=== PATIENT | female | born 1955 | race Caucasian/White ===

== ENCOUNTER → 2019-05-16 | Outpatient (CLI) | payer MEDICAID, OTHER ==
--- NOTE | 2019-05-16 16:15 | KCIC ---
Bilateral digital screening mammograms: Reason for examination: Routine screening. Comparison is made to previous studies dated 05/25/2018 and 03/23/2017. Interpretation was made with the benefit of CAD. Patient was in a wheelchair and difficult to position. The skin and nipples show no abnormalities. No abnormal lymph nodes are seen. The breast parenchyma is predominantly fatty. (Breast density: Category A.) There are no dominant masses, suspicious calcifications or architectural distortions. A few benign calcifications are again seen. Impression: No evidence of malignancy. Recommend routine screening. BI-RADS Category 2: Benign. "Our facility is accredited by the [employer] Mammography Program." This patient's information has been entered into a reminder system for the patient to be notified with the results of her examination and a target date for the next mammogram. Electronically signed by: Steffany Valera MD (05/16/2019 4:12 PM) [id number]
== END | disposition home or self-care (01) ==
LOC: KCIC MAMMO 12:26
PROVIDERS: ATTEND Internal Medicine
DX: Z12.31 Encounter for screening mammogram for malignant neoplasm of breast (principal)
CPT/HCPCS: 77067

== ENCOUNTER → 2019-09-20 | Outpatient (CLI) | payer MEDICARE, MEDICAID ==
[2019-08-07 11:44] VITALS: BP 155/54
[~2019-09-20] MED LIST: ACET325T21 PO; ASPI1CPM PO; BENZ100C PO; CALC-497 PO; CALC500T31 PO; CETI10TA16 PO; CITA10TA8 PO; CLONAZEPAM1 MG PO; CYAN100031 PO; CYCL5TAB PO; DICL100G18 TP; FAMO-63 PO; GUAI600T47 PO; IPRA3AMP29 NEB; LEVE500T56 PO; LEVO100T PO; LEVO500T59 PO; LOPE-101 PO; MELA3TAB4 PO; MULT-245 PO; NYST1POW5 MC; ONDA4TAB7 PO; OSEL75CA PO; OXYC-325 PO; POLY17PO29 PO; POTA20TA4 PO; PRED20TA PO; ROPI2TAB10 PO; SENN-37 PO; SIMV20TA18 PO; TIZA4TAB2 PO; TRAM50TA PO
--- NOTE | 2019-09-20 11:02 | CARD ---
MR#: [id number] Date of Study: 09/20/2019 Ordering Physician: ABHILASH AGUILAR, Referring Physician: Julieth CASTILLO: Sarah Comer APPROVED REPORT EXAM: Two-dimensional and M-mode echocardiogram with Doppler and color Doppler. Other Information Quality : AverageHR: 63bpm INDICATION Chest Pain 2D DIMENSIONS Left Atrium(2D)3.3 (1.6-4.0cm)IVSd1.0 (0.7-1.1cm) LVDd4.8 (3.9-5.9cm)LVOT Diameter2.1 (1.8-2.4cm) PWd1.0 (0.7-1.1cm)LVDs3.5 (2.5-4.0cm) FS (%) 27.4 %SV57.2 ml LVEF(%)53.2 (>50%) Aortic Valve AoV Peak Mendoza.113.7cm/Nina Peak GR.5.2mmHg Mitral Valve MV E Smjdkuzp62.5cm/sMV A Velocity2.2cm/s E/A Ratio41.6MV A [id number] Pulmonary Valve PV Peak Ucqyajrz10.4cm/s Pulmonary Vein S1 Wypcooim70.1cm/sD2 Stujbynm27.2cm/s PVa [id number] LEFT VENTRICLE The left ventricle is normal size. There is normal left ventricular wall thickness. The left ventricu lar systolic function is normal. The Ejection Fraction is 60-65%. There is normal LV segmental wall m otion. The left ventricular diastolic function and filling is normal for age. RIGHT VENTRICLE The right ventricle is normal size. There is normal right ventricular wall thickness. The right ventr icular systolic function is normal. ATRIA The left atrium size is normal. The right atrium size is normal. The interatrial septum is intact wit h no evidence for an atrial septal defect or patent foramen ovale as noted on 2-D or Doppler imaging. AORTIC VALVE The aortic valve is normal in structure and function. Doppler and Color Flow revealed no significant aortic regurgitation. There is no significant aortic valvular stenosis. MITRAL VALVE The mitral valve is normal in structure and function. There is no mitral valve stenosis. Doppler and Color Flow revealed no mitral valve regurgitation noted. TRICUSPID VALVE The tricuspid valve is normal in structure and function. Doppler and Color Flow revealed no tricuspid valve regurgitation noted. There is no tricuspid valve stenosis. PULMONIC VALVE The pulmonary valve is normal in structure and function. Doppler and Color Flow revealed no pulmonic valvular regurgitation. GREAT VESSELS The aortic root is normal in size. The IVC is normal in size and collapses >50% with inspiration. PERICARDIAL EFFUSION There is no evidence of significant pericardial effusion. Critical Notification Critical Value: No <Conclusion> The left ventricular systolic function is normal. The Ejection Fraction is 60-65%. There is normal LV segmental wall motion. There is no evidence of significant pericardial effusion. Signed by : Abhilash Aguilar, Electronically Approved : 09/20/2019 11:01:34
== END ==
LOC: ECHO 09:14
PROVIDERS: ATTEND Internal Medicine Cardiovascular Disease
DX: R07.9 Chest pain, unspecified (principal)
CPT/HCPCS: 93306

== ENCOUNTER 2019-12-27 07:00 | Inpatient (IN) | payer MEDICARE, MEDICAID ==
[~2019-12-27] VITALS: Ht 165.1 cm; Wt 98.1 kg
[~2019-12-27 07:00] MED LIST changes: -DICL100G18 TP; +DICL100G54 TP; +LEVO-101 PO; -LEVO100T PO
--- NOTE | 2019-12-27 07:11 | EKG ---
[facility] [address] [place] [address] Test Date: 2019-12-27 Test Time: 07:05:12 Pat Name: MAURY BALDERRAMA Department: Room: Gender: F Concession Supervisor: : 1955 Requested By: FABRICIO MONTEZ Order Number: [id number] Reading MD: Geovany Lara MD Measurements Intervals [place] Rate: 82 P: 73 ID: [id number] QRS: 7 QRSD: 80 T: 48 QT: 360 QTc: 424 Interpretive Statements SINUS RHYTHM VENTRICULAR PREMATURE COMPLEX(ES) Electronically Signed On 12-27-2019 9:50:16 CDT by Geovany Lara MD
[2019-12-27] MEDS ORDERED: IV NORMAL SALINE 1000ML BAG 1,000 ML IV ONE (07:15)
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
[2019-12-27 07:26] LABS: BASO % 0 % (0-3); EOS # 0.1 x10^3/uL (0.0-0.7); EOS % 1 % (0-3); HEMATOCRIT 28.5 % (36.0-47.0); LYMPH # 2.1 x10^3/uL (1.0-4.8); LYMPH % 19 % (24-48); MEAN CORPUSCULAR HEMOGLOBIN 24 pg (25-35); MEAN CORPUSCULAR HGB CONC 32 g/dL (31-37); MEAN CORPUSCULAR VOLUME 77 fL (79-100); MONO # 0.8 x10^3/uL (0.0-1.1); MONO % 8 % (0-9); NEUT # 7.8 x10^3/uL (1.8-7.7); NEUT % 72 % (31-73); PLATELET COUNT 543 x10^3/uL (140-400); WHITE BLOOD COUNT 10.9 x10^3/uL (4.0-11.0)
[2019-12-27] MEDS ORDERED: ASPIRIN 325 MG TABLET PO ONE (07:30)
[2019-12-27 07:36] LABS: PROTHROMBIN TIME PATIENT 14.3 SEC (11.7-14.0)
[2019-12-27 07:41] LABS: CALCIUM 8.5 mg/dL (8.5-10.1); CREATININE 0.9 mg/dL (0.6-1.0); POTASSIUM 4.2 mmol/L (3.5-5.1)
[2019-12-27] MEDS ORDERED: CONTRAST GIVEN. MC PRN (07:45)
[2019-12-27] MEDS ORDERED: IOHEXOL 350 MG/ML 100 ML VIAL. IV ONE (07:45)
[2019-12-27 07:46] LABS: ALBUMIN 2.5 g/dL (3.4-5.0); ALBUMIN/GLOBULIN RATIO 0.5 (1.0-1.7); MAGNESIUM 2.1 mg/dL (1.8-2.4); TOTAL BILIRUBIN 0.2 mg/dL (0.2-1.0); TOTAL PROTEIN 7.3 g/dL (6.4-8.2)
[2019-12-27 07:47] LABS: BILIRUBIN,URINE NEGATIVE (NEG); CLARITY,URINE CLEAR; COLOR,URINE YELLOW; NITRITE,URINE NEGATIVE (NEG); PROTEIN,URINE NEGATIVE (NEG-TRACE); UROBILINOGEN,URINE 0.2 mg/dL (0.2 mg/dL)
[2019-12-27 07:53] LABS: CREATINE KINASE 26 U/L (26-192)
[2019-12-27 07:56] LABS: SQUAMOUS EPITHELIAL CELL,UR MOD /LPF
[2019-12-27 07:57] LABS: BACTERIA,URINE FEW /HPF (0-FEW); RBC,URINE OCC /HPF (0-2)
--- NOTE | 2019-12-27 08:49 | RAD ---
Chest CTA History: Chest pain, hypoxia Technique: After bolus of intravenous contrast, CT imaging was performed of the chest. Multiplanar reconstruction images to include MIP reconstruction images are submitted. Exposure: One or more of the following individualized dose reduction techniques were utilized for this examination: 1. Automated exposure control 2. Adjustment of the mA and/or kV according to patient size 3. Use of iterative reconstruction technique. Comparison: August 05, 2019 Findings: There is some motion degradation also some optimal contrast opacification of the more distal and smaller pulmonary arteries. No central pulmonary embolism is identified. However findings are suspicious for tiny emboli in the left lower lobe such as best seen on images 83 to 88 series 3. There is mild centrilobular emphysema. There is mild dependent atelectasis bilaterally. There is no pleural or pericardial fluid. There is some coronary calcification. Thoracic aortic caliber is within normal limits, scattered plaque present. There again may be thyroid nodule, poorly characterized on this exam. Impression: 1. No central pulmonary embolism is identified although findings are suspicious for tiny emboli in the left lower lobe. 2. There is emphysema. There is some coronary calcification. 3. There again may be left thyroid nodule. Findings discussed with FABRICIO MONTEZ at 12/27/2019 8:41 AM. FOR INTERNAL CODING PURPOSES RESULT CODE: Electronically signed by: Emilio Jiang MD (12/27/2019 8:46 AM) [id number]
[2019-12-27] MEDS ORDERED: ONDANSETRON PF 4 MG/2 ML VIAL. IV PRN (09:00)
--- NOTE | 2019-12-27 09:21 | RAD ---
Right lower extremity venous Doppler ultrasound History: PE, eval for DVT / Spl. Instructions: / History: Comparison: None. Procedure: Color flow Doppler, Doppler spectral analysis, and 2D images are obtained with and without compression in the area of the common femoral vein, superficial femoral vein - femoral vein junction, main femoral vein (superficial femoral vein) and popliteal vein. Veins of the proximal calf are also imaged. Findings: There is normal color flow, augmentation, and compressibility of all visualized vein segments. No evidence of deep venous thrombus is present. IMPRESSION: No evidence of right or left lower extremity deep venous thrombosis. Electronically signed by: Josh Gallego MD (12/27/2019 9:18 AM) [id number]
[2019-12-27 10:37] VITALS: BP 142/52
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
--- NOTE | 2019-12-27 11:55 | NUR ---
The patient, MAURY BALDERRAMA, 64 y/o, F admitted by INDERJIT HELTON III, DO, was given written information regarding hospital policies, unit procedures and contact persons. Valuables were checked and left at bedside. Patient oriented to room and unit routines verbalized understanding. Call light within reach will continue to monitor.
[2019-12-27 12:03] LABS: CHOLESTEROL/HDL RATIO 2.9
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
[2019-12-27] MEDS ORDERED: LIDO700A21 TP (12:27)
[2019-12-27] MEDS ORDERED: SERT50TA8 PO (12:27)
[2019-12-27] MEDS ORDERED: DIPH25TA64 PO (12:27)
[2019-12-27] MEDS ORDERED: FERR325T14 PO (12:27)
[2019-12-27] MEDS ORDERED: LIDO76.5 TP (12:27)
[2019-12-27] MEDS ORDERED: ROPI1TAB4 PO (12:27)
[2019-12-27] MEDS ORDERED: TRAM50TA PO (12:27)
[2019-12-27] MEDS ORDERED: OXYC-325 PO ×2 (12:27)
[2019-12-27] MEDS ORDERED: FURO20TA3 PO (12:27)
[2019-12-27] MEDS ORDERED: LEVO75TA90 PO (12:27)
[2019-12-27] MEDS ORDERED: ROPI0.25 PO (12:27)
[2019-12-27] MEDS ORDERED: POTA10TA6 PO (12:27)
[2019-12-27] MEDS ORDERED: TRAZ-118 PO (12:27)
[2019-12-27] MEDS ORDERED: traMADol 50 MG TABLET PO PRN (12:30)
[2019-12-27] MEDS ORDERED: POLYETHYLENE GLYCOL 3350 17 GM PACKET. PO PRN (12:30)
[2019-12-27] MEDS ORDERED: ACETAMINOPHEN 325 MG TABLET. PO PRN (12:30)
[2019-12-27] MEDS ORDERED: CALCIUM CARBONATE 500 MG TABLET PO PRN (12:30)
[2019-12-27] MEDS ORDERED: oxyCODONE/APAP 5/325 1 TAB TABLET PO PRN (12:30)
[2019-12-27] MEDS: DICLOFENAC SODIUM 1% TOPICAL GEL 100GM TUBE. TP SCH ×3 (12:54→20:17)
[2019-12-27] MEDS: oxyCODONE/APAP 5/325 1 TAB TABLET PO PRN (12:55)
[2019-12-27] MEDS: cefTRIAXone IV Push 1 GM VIAL. IVP SCH (12:55)
[2019-12-27] MEDS ORDERED: diphenhydrAMINE HCL 25 MG CAPSULE PO PRN (13:00)
[2019-12-27] MEDS ORDERED: METHYL SALICYLATE/MENTHOL TOPICAL CREAM 57GM TUBE. TP PRN (13:00)
[2019-12-27] MEDS: rOPINIRole 1 MG TABLET. PO PRN (14:49)
[2019-12-27 14:50] VITALS: BP 139/61
[2019-12-27 19:30] VITALS: BP 148/67
[2019-12-27] MEDS: tiZANidine 4 MG TABLET. PO PRN (20:12)
[2019-12-27] MEDS: SENNOSIDES/DOCUSATE 8.6/50MG TABLET. PO SCH (20:13)
[2019-12-27] MEDS: FAMOTIDINE 20 MG TABLET. PO SCH (20:13)
[2019-12-27] MEDS: levETIRAcetam 500 MG TABLET PO SCH (20:13)
[2019-12-27] MEDS: rOPINIRole 0.25 MG TABLET. PO SCH (20:14)
[2019-12-27] MEDS: traZODone 50 MG TABLET. PO SCH (20:14)
[2019-12-27] MEDS: ASPIRIN/DIPYRIDAMOLE 200/25MG CAP.ER.12H. PO SCH (20:14)
[2019-12-27] MEDS: SIMVASTATIN 20 MG TABLET PO SCH (20:14)
[2019-12-27] MEDS ORDERED: NON FORMULARY ITEM (Melatonin 2 TAB) PO SCH (21:00)
[2019-12-27 22:50] VITALS: BP 137/57
[2019-12-28] MEDS: oxyCODONE/APAP 5/325 1 TAB TABLET PO PRN ×5 (00:23→22:54)
[2019-12-28 03:22] VITALS: BP 107/43
[2019-12-28 07:17] VITALS: BP 112/56
[2019-12-28] MEDS: CETIRIZINE HCL 10 MG TABLET. PO SCH (08:38)
[2019-12-28] MEDS: ASPIRIN/DIPYRIDAMOLE 200/25MG CAP.ER.12H. PO SCH ×2 (08:38→20:39)
[2019-12-28] MEDS: FUROSEMIDE 20 MG TABLET PO SCH (08:39)
[2019-12-28] MEDS: rOPINIRole 0.25 MG TABLET. PO SCH ×2 (08:39→20:40)
[2019-12-28] MEDS: POTASSIUM CHLORIDE 10 MEQ TABLET.ER. PO SCH (08:40)
[2019-12-28] MEDS: MULTIVITAMIN with MINERAL TABLET. PO SCH (08:40)
[2019-12-28] MEDS: SERTRALINE 50 MG TABLET. PO SCH (08:40)
[2019-12-28] MEDS: LEVOTHYROXINE 75 MCG TABLET PO SCH (08:40)
[2019-12-28] MEDS: FERROUS SULFATE 325 MG TABLET. PO SCH (08:40)
[2019-12-28] MEDS: CYANOCOBALAMIN (VITAMIN B-12) 1,000 MCG TABLET. PO SCH (08:40)
[2019-12-28] MEDS: levETIRAcetam 500 MG TABLET PO SCH ×2 (08:40→20:40)
[2019-12-28] MEDS: FAMOTIDINE 20 MG TABLET. PO SCH ×2 (08:40→20:41)
[2019-12-28] MEDS: LIDOCAINE (700MG/PATCH) PATCH. TP SCH (08:41)
[2019-12-28] MEDS: SENNOSIDES/DOCUSATE 8.6/50MG TABLET. PO SCH ×2 (08:44→20:40)
[2019-12-28] MEDS: DICLOFENAC SODIUM 1% TOPICAL GEL 100GM TUBE. TP SCH ×4 (08:48→20:42)
--- NOTE | 2019-12-28 09:23 | PDOC ---
PROGRESS NOTES History of Present Illness History of Present Illness ASSESSMENT Chest discomfort small pulmonary emboli No central pulmonary embolism is identified although findings are suspicious for tiny emboli in the left lower lobe. emphysema. coronary calcification. BY CT left thyroid nodule. urinary tract infection anemia. admitted. consult Pulmonary consult Cardiology. Empiric IV antibiotics, home meds, deep venous thrombosis prophylaxis. Full code. Cardiac monitoring, serial enzymes, and serial EKGs. covid-19 screen 37 min pt exam, chart review, > 50% of time spent with exam, chart review, pt care coordination Vitals Vitals Vital Signs Date Time Temp Pulse Resp B/P (MAP) Pulse Ox O2 Delivery O2 Flow Rate FiO2 12/28/19 07:17 98.4 73 18 112/56 (74) 97 Nasal Cannula 2.0 98.4 Physical Exam General: Alert, Oriented X3, Cooperative, No acute distress Heart: Regular rate (SR), Normal S1, Normal S2, No murmurs Lungs: Wheezing Abdomen: Soft, No tenderness, Other (obese) Extremities: No cyanosis, Other (trace LE edema) Skin: No breakdown, No significant lesion Labs LABS DICTATED AND SIGNED BY: KAI ALEJANDRO MD DATE: 12/27/19 1137 CC: INDERJIT HELTON III DO; WENDY BERRY MD; SIRIA EARL MD; DANY TALAVERA MD; FABRICIO MONTEZ DO ~ Chest CTA History: Chest pain, hypoxia Technique: After bolus of intravenous contrast, CT imaging was performed of the chest. Multiplanar reconstruction images to include MIP reconstruction images are submitted. Exposure: One or more of the following individualized dose reduction techniques were utilized for this examination: 1. Automated exposure control 2. Adjustment of the mA and/or kV according to patient size 3. Use of iterative reconstruction technique. Comparison: August 05, 2019 Findings: There is some motion degradation also some optimal contrast opacification of the more distal and smaller pulmonary arteries. No central pulmonary embolism is identified. However findings are suspicious for tiny emboli in the left lower lobe such as best seen on images 83 to 88 series 3. There is mild centrilobular emphysema. There is mild dependent atelectasis bilaterally. There is no pleural or pericardial fluid. There is some coronary calcification. Thoracic aortic caliber is within normal limits, scattered plaque present. There again may be thyroid nodule, poorly characterized on this exam. Impression: 1. No central pulmonary embolism is identified although findings are suspicious for tiny emboli in the left lower lobe. 2. There is emphysema. There is some coronary calcification. 3. There again may be left thyroid nodule. Findings discussed with FABRICIO MONTEZ at 12/27/2019 8:41 AM. FOR INTERNAL CODING PURPOSES RESULT CODE: Electronically signed by: Marlene Dorantes MD (12/27/2019 8:46 AM) [id number] DICTATED and SIGNED BY: MARLENE DORANTES MD DATE: 12/27/19845 Laboratory Tests Test 12/27/19 11:50 12/27/19 14:55 Troponin I Quantitative < 0.017 ng/mL (0.000-0.055) < 0.017 ng/mL (0.000-0.055) Assessment and Plan Assessmemt and Plan Problems Medical Problems: (1) Acute pulmonary embolism Status: Acute Comment Review of Relevant I have reviewed the following items jaron (where applicable) has been applied. Labs Laboratory Tests Test 12/27/19 07:15 12/27/19 07:38 12/27/19 11:50 12/27/19 14:55 White Blood Count 10.9 x10^3/uL (4.0-11.0) Red Blood Count 3.70 x10^6/uL (3.50-5.40) Hemoglobin 9.0 g/dL (12.0-15.5) Hematocrit 28.5 % (36.0-47.0) Mean Corpuscular Volume 77 fL (79-100) Mean Corpuscular Hemoglobin 24 pg (25-35) Mean Corpuscular Hemoglobin Concent 32 g/dL (31-37) Red Cell Distribution Width 17.0 % (11.5-14.5) Platelet Count 543 x10^3/uL (140-400) Neutrophils (%) (Auto) 72 % (31-73) Lymphocytes (%) (Auto) 19 % (24-48) Monocytes (%) (Auto) 8 % (0-9) Eosinophils (%) (Auto) 1 % (0-3) Basophils (%) (Auto) 0 % (0-3) Neutrophils # (Auto) 7.8 x10^3/uL (1.8-7.7) Lymphocytes # (Auto) 2.1 x10^3/uL (1.0-4.8) Monocytes # (Auto) 0.8 x10^3/uL (0.0-1.1) Eosinophils # (Auto) 0.1 x10^3/uL (0.0-0.7) Basophils # (Auto) 0.0 x10^3/uL (0.0-0.2) Prothrombin Time 14.3 SEC (11.7-14.0) Prothromb Time International Ratio 1.2 (0.8-1.1) Activated Partial Thromboplast Time 36 SEC (24-38) Sodium Level 140 mmol/L (136-145) Potassium Level 4.2 mmol/L (3.5-5.1) Chloride Level 104 mmol/L (98-107) Carbon Dioxide Level 27 mmol/L (21-32) Anion Gap 9 (6-14) Blood Urea Nitrogen 11 mg/dL (7-20) Creatinine 0.9 mg/dL (0.6-1.0) Estimated GFR (Cockcroft-Gault) 63.0 BUN/Creatinine Ratio 12 (6-20) Glucose Level 107 mg/dL (70-99) Calcium Level 8.5 mg/dL (8.5-10.1) Magnesium Level 2.1 mg/dL (1.8-2.4) Total Bilirubin 0.2 mg/dL (0.2-1.0) Aspartate Amino Transf (AST/SGOT) 19 U/L (15-37) Alanine Aminotransferase (ALT/SGPT) 21 U/L (14-59) Alkaline Phosphatase 82 U/L (46-116) Creatine Kinase 26 U/L (26-192) Creatine Kinase MB (Mass) < 0.5 ng/mL (0.0-3.6) Creatine Kinase MB Relative Index % (0-4) Troponin I Quantitative < 0.017 ng/mL (0.000-0.055) < 0.017 ng/mL (0.000-0.055) < 0.017 ng/mL (0.000-0.055) OU-Kii-F-Type Natriuretic Peptide 319 pg/mL (0-124) Total Protein 7.3 g/dL (6.4-8.2) Albumin 2.5 g/dL (3.4-5.0) Albumin/Globulin Ratio 0.5 (1.0-1.7) Triglycerides Level 69 mg/dL (0-150) Cholesterol Level 132 mg/dL (0-200) LDL Cholesterol, Calculated 72 mg/dL (0-100) VLDL Cholesterol, Calculated 14 mg/dL (0-40) Non-HDL Cholesterol Calculated 86 mg/dL (0-129) HDL Cholesterol 46 mg/dL (40-60) Cholesterol/HDL Ratio 2.9 Lipase 70 U/L (73-393) Thyroid Stimulating Hormone (TSH) 0.778 uIU/mL (0.358-3.74) Urine Collection Type Void Urine Color Yellow Urine Clarity Clear Urine pH 6.0 (<5.0-8.0) Urine Specific [place] 1.010 (1.000-1.030) Urine Protein Negative mg/dL (NEG-TRACE) Urine Glucose (UA) Negative mg/dL (NEG) Urine Ketones (Stick) Negative mg/dL (NEG) Urine Blood Negative (NEG) Urine Nitrite Negative (NEG) Urine Bilirubin Negative (NEG) Urine Urobilinogen Dipstick 0.2 mg/dL (0.2 mg/dL) Urine Leukocyte Esterase Trace (NEG) Urine RBC Occ /HPF (0-2) Urine WBC 5-10 /HPF (0-4) Urine Squamous Epithelial Cells Mod /LPF Urine Bacteria Few /HPF (0-FEW) Laboratory Tests Test 12/27/19 11:50 12/27/19 14:55 Troponin I Quantitative < 0.017 ng/mL (0.000-0.055) < 0.017 ng/mL (0.000-0.055) Medications Current Medications Sodium Chloride 1,000 ml @ 1,000 mls/hr 1X ONCE IV Last administered on 12/27/19at 07:29; Start 12/27/19 at 07:15; Stop 12/27/19 at 08:14; Status DC Aspirin (Mario Aspirin) 325 mg 1X ONCE PO Last administered on 12/27/19at 07:29; Start 12/27/19 at 07:30; Stop 12/27/19 at 07:31; Status DC Iohexol (Omnipaque 350 Mg/ml) 100 ml 1X ONCE IV Last administered on 12/27/19at 07:45; Start 12/27/19 at 07:45; Stop 12/27/19 at 07:46; Status DC Info (CONTRAST GIVEN -- Rx MONITORING) 1 each PRN DAILY PRN MC SEE COMMENTS; Start 12/27/19 at 07:45; Stop 12/29/19 at 07:44 Enoxaparin Sodium (Lovenox 100mg Syringe) 90 mg 1X ONCE SQ Last administered on 12/27/19at 09:09; Start 12/27/19 at 08:45; Stop 12/27/19 at 08:47; Status DC Ondansetron HCl (Zofran) 4 mg PRN Q8HRS PRN IV NAUSEA/VOMITING; Start 12/27/19 at 09:00; Stop 12/28/19 at 08:59; Status DC Ceftriaxone Sodium (Rocephin) 1 gm Q24H IVP Last administered on 12/27/19at 12:55; Start 12/27/19 at 13:00 Acetaminophen (Tylenol) 650 mg PRN Q4HRS PRN PO FEVER; Start 12/27/19 at 12:30 Dipyridamole/ Aspirin (Aggrenox) 1 cap BID PO Last administered on 12/28/19at 08:38; Start 12/27/19 at 21:00 Calcium Carbonate/ Glycine (Oscal) 500 mg PRN Q12HR PRN PO INDIGESTION; Start 12/27/19 at 12:30 Cetirizine HCl (ZyrTEC) 10 mg DAILY PO Last administered on 12/28/19at 08:38; Start 12/28/19 at 09:00 Diclofenac Sodium (Voltaren) 1 mabel QID TP Last administered on 12/28/19at 08:48; Start 12/27/19 at 13:00 Famotidine (Pepcid) 20 mg BID PO Last administered on 12/28/19at 08:40; Start 12/27/19 at 21:00 Ferrous Sulfate (Feosol) 325 mg DAILY PO Last administered on 12/28/19at 08:40; Start 12/28/19 at 09:00 Furosemide (Lasix) 60 mg DAILY PO Last administered on 12/28/19at 08:39; Start 12/28/19 at 09:00 Guaifenesin (Mucinex) 600 mg DAILY PO Last administered on 12/28/19at 08:39; Start 12/28/19 at 09:00 Levetiracetam (Keppra) 1,000 mg DAILY PO Last administered on 12/28/19at 08:40; Start 12/28/19 at 09:00 Levetiracetam (Keppra) 1,500 mg HS PO Last administered on 12/27/19at 20:13; Start 12/27/19 at 21:00 Levothyroxine Sodium (Synthroid) 75 mcg DAILY PO Last administered on 12/28/19at 08:40; Start 12/28/19 at 09:00 Lidocaine (Lidoderm) 1 patch DAILY TP Last administered on 12/28/19at 08:41; S tart 12/28/19 at 09:00 Oxycodone/ Acetaminophen (Percocet 5/325) 1 tab PRN DAILY PRN PO PAIN; Start 12/27/19 at 12:30; Stop 12/27/19 at 12:38; Status DC Oxycodone/ Acetaminophen (Percocet 5/325) 1 tab PRN Q4HRS PRN PO PAIN SEVERE Last administered on 12/28/19at 05:09; Start 12/27/19 at 12:30 Polyethylene Glycol (miraLAX PACKET) 17 gm PRN DAILY PRN PO CONSTIPATION; Start 12/27/19 at 12:30 Ropinirole HCl (Requip) 1 mg PRN DAILY PRN PO SEE COMMENTS Last administered on 12/27/19at 14:49; Start 12/27/19 at 12:30 Ropinirole HCl (Requip) 1 mg BID PO Last administered on 12/28/19at 08:39; Start 12/27/19 at 21:00 Senna/Docusate Sodium (Senna Plus) 1 tab BID PO ; Start 12/27/19 at 21:00 Sertraline HCl (Zoloft) 50 mg DAILY PO Last administered on 12/28/19at 08:40; S tart 12/28/19 at 09:00 Simvastatin (Zocor) 20 mg QHS PO Last administered on 12/27/19at 20:14; Start 12/27/19 at 21:00 Tramadol HCl (Ultram) 50 mg PRN Q6HRS PRN PO PAIN MILD TO MOD; Start 12/27/19 at 12:30 Trazodone HCl (Desyrel) 25 mg QHS PO Last administered on 12/27/19at 20:14; Start 12/27/19 at 21:00 Cyanocobalamin (Vitamin B-12) 1,000 mcg DAILY PO Last administered on 12/28/19at 08:40; Start 12/28/19 at 09:00 Diphenhydramine HCl (Benadryl) 25 mg PRN Q4HRS PRN PO ITCHING; Start 12/27/19 at 13:00 Menthol/Methyl Salicylate (Bengay Greaseless Cream) 1 mabel PRN QID PRN TP MUSCLE PAIN; Start 12/27/19 at 13:00 Non-Formulary Medication (Melatonin ) 2 tab QHS PO ; Start 12/27/19 at 21:00; Stop 12/27/19 at 12:37; Status DC Multivitamins (Thera M Plus) 1 tab DAILY PO Last administered on 12/28/19at 08:40; Start 12/28/19 at 09:00 Potassium Chloride (Klor-Con) 20 meq DAILYWBKFT PO Last administered on 12/28/19at 08:40; Start 12/28/19 at 08:00 Tizanidine HCl (Zanaflex) 4 mg PRN Q8HRS PRN PO MUSCLE SPASMS Last administered on 12/27/19at 20:12; Start 12/27/19 at 16:30 Active Scripts Active Reported Trazodone Hcl 50 Mg Tablet 0.5 Tab PO QHS Tramadol Hcl 50 Mg Tablet 50 Mg PO Q6HRS PRN Sertraline Hcl 50 Mg Tablet 50 Mg PO DAILY Requip (Ropinirole Hcl) 0.25 Mg Tablet 1 Mg PO BID Ropinirole Hcl 1 Mg Tablet 1 Mg PO PRN DAILY PRN Synthroid (Levothyroxine Sodium) 75 Mcg Tablet 1 Tab PO DAILY Klor-Con 10 (Potassium Chloride) 10 Meq Tablet.er 2 Tab PO DAILY 30 Days Percocet 5-325 mg Tablet (Oxycodone HCl/Acetaminophen) 1 Each Tablet 1 Tab PO PRN DAILY PRN MDD 2 Tablet(s) 30 Days Percocet 5-325 mg Tablet (Oxycodone HCl/Acetaminophen) 1 Each Tablet 1 Tab PO PRN Q4HRS PRN MDD 2 Tablet(s) 5 Days Furosemide 20 Mg Tablet 3 Tab PO DAILY Ferrous Sulfate 325 Mg Tablet 1 Tab PO DAILY Benadryl Allergy (Diphenhydramine Hcl) 25 Mg Tablet 25 Mg PO PRN Q4HRS PRN Aspercreme (Lidocaine HCl) 76.5 Gm Cream..g. 1 Mabel TP PRN Q6HRS PRN 30 Days Lidocaine PATCH (Lidocaine) 1 Each Adh..patch 1 Each TP DAILY REMOVE AFTER 12 HOURS Simvastatin 20 Mg Tablet 1 Tab PO QHS Senokot-S Tablet (Sennosides/Docusate Sodium) 1 Each Tablet 1 Tab PO BID 30 Days Pepcid (Famotidine) 20 Mg Tablet 20 Mg PO BID Mucinex (Guaifenesin) 600 Mg Tablet.er 1 Tab PO DAILY 10 Days Miralax (Polyethylene Glycol 3350) 17 Gm Powd.pack 1 Packet PO PRN DAILY PRN 2 Days dissolve in water Melatonin 3 Mg Tablet 2 Tab PO QHS Keppra (Levetiracetam) 500 Mg Tablet 3 Tab PO HS 30 Days Keppra (Levetiracetam) 500 Mg Tablet 2 Tab PO DAILY 30 Days Voltaren (Diclofenac Sodium) 100 Gm Gel..gram. 1 Gm TP QID 30 Days apply to affected area(s) B-12 (Cyanocobalamin (Vitamin B-12)) 1,000 Mcg Tablet.er 1 Tab PO DAILY 30 Days Cetirizine Hcl 10 Mg Tablet 1 Tab PO DAILY Multi Vitamin Daily (Multivitamin) 1 Each Tablet 1 Tab PO DAILY 30 Days Calcium Carbonate 500 Mg Tablet 1 Tab PO PRN Q12HR PRN 30 Days Aggrenox 25 Mg-200 Mg Capsule (Aspirin/Dipyridamole) 1 Each Cpmp.12hr 1 Cap PO BID Acetaminophen 325 Mg Tablet 2 Tab PO Q4HRS PRN 30 Days Vitals/I & O Vital Sign - Last 24 Hours 12/27/19 12/27/19 12/27/19 12/27/19 09:32 10:37 11:39 12:55 Temp 98.1 98.1 Pulse 76 76 Resp 20 20 B/P (MAP) 124/58 (80) 142/52 (82) Pulse Ox 96 97 O2 Delivery Nasal Cannula Nasal Cannula Nasal Cannula Nasal Cannula O2 Flow Rate 3.0 2.0 2.0 2.0 12/27/19 12/27/19 12/27/19 12/27/19 14:50 19:30 20:00 22:50 Temp 97.6 98.1 97.9 97.6 98.1 97.9 Pulse 72 75 81 Resp 22 20 20 B/P (MAP) 139/61 (87) 148/67 (94) 137/57 (83) Pulse Ox 98 98 98 O2 Delivery Nasal Cannula Nasal Cannula Nasal Cannula Nasal Cannula O2 Flow Rate 2.0 2.0 2.0 2.0 12/28/19 12/28/19 12/28/19 12/28/19 00:23 01:23 03:22 05:09 Temp 98.6 98.6 Pulse 87 Resp 18 B/P (MAP) 107/43 (64) Pulse Ox 98 94 94 94 O2 Delivery Nasal Cannula Nasal Cannula Nasal Cannula Nasal Cannula O2 Flow Rate 2.0 2.0 2.0 2.0 12/28/19 12/28/19 06:09 07:17 Temp 98.4 98.4 Pulse 73 Resp 18 18 B/P (MAP) 112/56 (74) Pulse Ox 94 97 O2 Delivery Nasal Cannula Nasal Cannula O2 Flow Rate 2.0 2.0 Intake and Output 12/27/19 12/27/19 12/28/19 15:00 23:00 07:00 Intake Total 1240 ml 300 ml 200 ml Output Total 550 ml 1 ml 850 ml Balance 690 ml 299 ml -650 ml ROSALVA TRAN MD Dec 28, 2019 09:23
[2019-12-28 10:35] VITALS: BP 118/56
--- NOTE | 2019-12-28 10:46 | NUR ---
SS following for discharge planning. SS reviewed pt chart and discussed with pt RN. Pt is LTC resident from [facility], ; fax [phone]. Pt is currently requiring oxygen. SS contacted [facility] and verified pt's previous placement. COVID19 test pending per request from facility. SS will continue to follow for discharge planning.
--- NOTE | 2019-12-28 11:09 | PDOC ---
PULMONARY PROGRESS NOTES Subjective no soa no CP Vitals Vital Signs Date Time Temp Pulse Resp B/P (MAP) Pulse Ox O2 Delivery O2 Flow Rate FiO2 12/28/19 10:35 98.6 74 18 118/56 (76) 96 Nasal Cannula 2.0 98.6 ROS: No Chest Pain General: Alert, Oriented X4, No acute distress Lungs: Clear Cardiovascular: S1 Abdomen: Soft Neuro Exam: Alert Extremities: No Edema Skin: Warm Labs Laboratory Tests Test 12/27/19 07:15 12/27/19 07:38 12/27/19 11:50 12/27/19 14:55 White Blood Count 10.9 x10^3/uL (4.0-11.0) Red Blood Count 3.70 x10^6/uL (3.50-5.40) Hemoglobin 9.0 g/dL (12.0-15.5) Hematocrit 28.5 % (36.0-47.0) Mean Corpuscular Volume 77 fL (79-100) Mean Corpuscular Hemoglobin 24 pg (25-35) Mean Corpuscular Hemoglobin Concent 32 g/dL (31-37) Red Cell Distribution Width 17.0 % (11.5-14.5) Platelet Count 543 x10^3/uL (140-400) Neutrophils (%) (Auto) 72 % (31-73) Lymphocytes (%) (Auto) 19 % (24-48) Monocytes (%) (Auto) 8 % (0-9) Eosinophils (%) (Auto) 1 % (0-3) Basophils (%) (Auto) 0 % (0-3) Neutrophils # (Auto) 7.8 x10^3/uL (1.8-7.7) Lymphocytes # (Auto) 2.1 x10^3/uL (1.0-4.8) Monocytes # (Auto) 0.8 x10^3/uL (0.0-1.1) Eosinophils # (Auto) 0.1 x10^3/uL (0.0-0.7) Basophils # (Auto) 0.0 x10^3/uL (0.0-0.2) Prothrombin Time 14.3 SEC (11.7-14.0) Prothromb Time International Ratio 1.2 (0.8-1.1) Activated Partial Thromboplast Time 36 SEC (24-38) Sodium Level 140 mmol/L (136-145) Potassium Level 4.2 mmol/L (3.5-5.1) Chloride Level 104 mmol/L (98-107) Carbon Dioxide Level 27 mmol/L (21-32) Anion Gap 9 (6-14) Blood Urea Nitrogen 11 mg/dL (7-20) Creatinine 0.9 mg/dL (0.6-1.0) Estimated GFR (Cockcroft-Gault) 63.0 BUN/Creatinine Ratio 12 (6-20) Glucose Level 107 mg/dL (70-99) Calcium Level 8.5 mg/dL (8.5-10.1) Magnesium Level 2.1 mg/dL (1.8-2.4) Total Bilirubin 0.2 mg/dL (0.2-1.0) Aspartate Amino Transf (AST/SGOT) 19 U/L (15-37) Alanine Aminotransferase (ALT/SGPT) 21 U/L (14-59) Alkaline Phosphatase 82 U/L (46-116) Creatine Kinase 26 U/L (26-192) Creatine Kinase MB (Mass) < 0.5 ng/mL (0.0-3.6) Creatine Kinase MB Relative Index % (0-4) Troponin I Quantitative < 0.017 ng/mL (0.000-0.055) < 0.017 ng/mL (0.000-0.055) < 0.017 ng/mL (0.000-0.055) ZK-Rmm-A-Type Natriuretic Peptide 319 pg/mL (0-124) Total Protein 7.3 g/dL (6.4-8.2) Albumin 2.5 g/dL (3.4-5.0) Albumin/Globulin Ratio 0.5 (1.0-1.7) Triglycerides Level 69 mg/dL (0-150) Cholesterol Level 132 mg/dL (0-200) LDL Cholesterol, Calculated 72 mg/dL (0-100) VLDL Cholesterol, Calculated 14 mg/dL (0-40) Non-HDL Cholesterol Calculated 86 mg/dL (0-129) HDL Cholesterol 46 mg/dL (40-60) Cholesterol/HDL Ratio 2.9 Lipase 70 U/L (73-393) Thyroid Stimulating Hormone (TSH) 0.778 uIU/mL (0.358-3.74) Urine Collection Type Void Urine Color Yellow Urine Clarity Clear Urine pH 6.0 (<5.0-8.0) Urine Specific [place] 1.010 (1.000-1.030) Urine Protein Negative mg/dL (NEG-TRACE) Urine Glucose (UA) Negative mg/dL (NEG) Urine Ketones (Stick) Negative mg/dL (NEG) Urine Blood Negative (NEG) Urine Nitrite Negative (NEG) Urine Bilirubin Negative (NEG) Urine Urobilinogen Dipstick 0.2 mg/dL (0.2 mg/dL) Urine Leukocyte Esterase Trace (NEG) Urine RBC Occ /HPF (0-2) Urine WBC 5-10 /HPF (0-4) Urine Squamous Epithelial Cells Mod /LPF Urine Bacteria Few /HPF (0-FEW) Laboratory Tests Test 12/27/19 11:50 12/27/19 14:55 Troponin I Quantitative < 0.017 ng/mL (0.000-0.055) < 0.017 ng/mL (0.000-0.055) Medications Active Scripts Medications Dose Route/Sig Max Daily Dose Days Date Category Dose Instructions Trazodone Hcl 50 Mg Tablet 0.5 Tab PO QHS 12/27/19 Reported Tramadol Hcl 50 Mg Tablet 50 Mg PO Q6HRS PRN 12/27/19 Reported Sertraline Hcl 50 Mg Tablet 50 Mg PO DAILY 12/27/19 Reported Requip (Ropinirole Hcl) 0.25 Mg Tablet 1 Mg PO BID 12/27/19 Reported Ropinirole Hcl 1 Mg Tablet 1 Mg PO PRN DAILY PRN 12/27/19 Reported Synthroid (Levothyroxine Sodium) 75 Mcg Tablet 1 Tab PO DAILY 12/27/19 Reported Klor-Con 10 (Potassium Chloride) 10 Meq Tablet.er 2 Tab PO DAILY 30 12/27/19 Reported Percocet 5-325 mg Tablet (Oxycodone HCl/Acetaminophen) 1 Each Tablet 1 Tab PO PRN DAILY PRN MDD 2 Tablet(s) 30 12/27/19 Reported Percocet 5-325 mg Tablet (Oxycodone HCl/Acetaminophen) 1 Each Tablet 1 Tab PO PRN Q4HRS PRN MDD 2 Tablet(s) 5 12/27/19 Reported Furosemide 20 Mg Tablet 3 Tab PO DAILY 12/27/19 Reported Ferrous Sulfate 325 Mg Tablet 1 Tab PO DAILY 12/27/19 Reported Benadryl Allergy (Diphenhydramine Hcl) 25 Mg Tablet 25 Mg PO PRN Q4HRS PRN 12/27/19 Reported Aspercreme (Lidocaine HCl) 76.5 Gm Cream..g. 1 Sheron TP PRN Q6HRS PRN 30 12/27/19 Reported Lidocaine PATCH (Lidocaine) 1 Each Adh..patch 1 Each TP DAILY 12/27/19 Reported REMOVE AFTER 12 HOURS Simvastatin 20 Mg Tablet 1 Tab PO QHS 08/05/19 Reported Senokot-S Tablet (Sennosides/Docusate Sodium) 1 Each Tablet 1 Tab PO BID 30 08/05/19 Reported Pepcid (Famotidine) 20 Mg Tablet 20 Mg PO BID 08/05/19 Reported Mucinex (Guaifenesin) 600 Mg Tablet.er 1 Tab PO DAILY 10 08/05/19 Reported Miralax (Polyethylene Glycol 3350) 17 Gm Powd.pack 1 Packet PO PRN DAILY PRN 2 08/05/19 Reported dissolve in water Melatonin 3 Mg Tablet 2 Tab PO QHS 08/05/19 Reported Keppra (Levetiracetam) 500 Mg Tablet 3 Tab PO HS 30 08/05/19 Reported Keppra (Levetiracetam) 500 Mg Tablet 2 Tab PO DAILY 30 08/05/19 Reported Voltaren (Diclofenac Sodium) 100 Gm Gel..gram. 1 Gm TP QID 30 08/05/19 Reported apply to affected area(s) B-12 (Cyanocobalamin (Vitamin B-12)) 1,000 Mcg Tablet.er 1 Tab PO DAILY 30 08/05/19 Reported Cetirizine Hcl 10 Mg Tablet 1 Tab PO DAILY 08/05/19 Reported Multi Vitamin Daily (Multivitamin) 1 Each Tablet 1 Tab PO DAILY 30 08/05/19 Reported Calcium Carbonate 500 Mg Tablet 1 Tab PO PRN Q12HR PRN 30 08/05/19 Reported Aggrenox 25 Mg-200 Mg Capsule (Aspirin/Dipyridamole) 1 Each Cpmp.12hr 1 Cap PO BID 08/05/19 Reported Acetaminophen 325 Mg Tablet 2 Tab PO Q4HRS PRN 30 08/05/19 Reported Impression . Substernal chest pain without any dyspnea. This pain was sharp and it felt like a it auditor knife to the patient. No pain on the left side. I am not convinced with a CTA chest of tiny pulmonary embolism in the left lower lobe. I have spoken with the radiologist who concurred with me. At this time, I do not think that there is any clinically significant pulmonary embolism. The other differential diagnosis would be to consider anginal pain and also GERD would be another possibility. Plan . 1. From a pulmonary standpoint, does not feel like she needs anticoagulation. 2. Cardiology.REC 3. GI cocktail if no cardiac evidence of chest pain. 4. Discussed with the radiologist and discussed with Dr. Buckley and discussed with RN. We will follow along with you. DANY TALAVERA MD Dec 28, 2019 11:09
--- NOTE | 2019-12-28 12:18 | PDOC ---
DELMI CARLISLE UNIX ARCHITECT 12/28/19 1218: CARDIO Progress Notes Date and Time Date of Service 12/28/2019 Time of Evaluation 1030 Subjective Subjective: No Chest Pain, No shortness of breath, No Palpitations Vitals Vitals Vital Signs Date Time Temp Pulse Resp B/P (MAP) Pulse Ox O2 Delivery O2 Flow Rate FiO2 12/28/19 10:35 98.6 74 18 118/56 (76) 96 Nasal Cannula 2.0 98.6 Weight Weight [ ] Input and Output Intake and Output Intake and Output 12/28/19 07:00 Intake Total 1740 ml Output Total 1401 ml Balance 339 ml Intake Oral 740 ml IV Total 1000 ml Output Urine Total 1401 ml # Voids 1 Laboratory Labs Laboratory Tests Test 12/27/19 14:55 Troponin I Quantitative < 0.017 ng/mL (0.000-0.055) Physical Exam HEENT: Neck Supple W Full Motion Chest: Symmetric LUNGS: Clear to Auscultation Heart: S1S2, RRR (SR) Abdomen: Soft N/T, Other (obese) Extremities: No Calf Tenderness Neurology: alert, oriented, follow commands Assessment Assessment 1. Atypical chest pain: initial trop nml. No acute changes to EKG. Recent EF and WM nml. suspect GI. None further overnight 2. Microcytic hypochromic anemia with thrombocytosis: notable for past RENALDO. no overt bleed. 4. Coronary calcifications: per CTA 5. HTN: controlled, on lasix for leg edema 6. HLP: on goal 7. Obesity with hx of MANSOOR Recommendations 1. No PE per pulmonary. On home aggrenox, may restart. 2. Given her significant cardiac risk factors will follow up in 1 month and will arrange for outpt stress test prior. 3. PPI or H2 kam per PCP. Restart statin 4. May DC per cardiac standpoint Justicifation of Admission Dx: Justifications for Admission: Justification of Admission Dx: Yes ABHILASH MCLEAN MD 12/29/19 0827: CARDIO Progress Notes Assessment Assessment Patient seen and examined 12/28/19. Agree with INGREDIENT MIXER's assessment and plan. Chest pain with atypical features. Myocardial infarction has been ruled out. Patient does not have acute PE per pulmonary team. Recent 2D echo showed normal LV function. Plan ischemic evaluation as an outpatient. DELMI CARLISLE UNIX ARCHITECT Dec 28, 2019 12:18 ABHILASH MCLEAN MD Dec 29, 2019 08:27
[2019-12-28] MEDS ORDERED: METHYL SALICYLATE/MENTHOL TOPICAL CREAM 57GM TUBE. TP PRN (13:45)
[2019-12-28] MEDS: tiZANidine 4 MG TABLET. PO PRN ×2 (13:55→20:40)
[2019-12-28] MEDS: cefTRIAXone IV Push 1 GM VIAL. IVP SCH (13:56)
[2019-12-28 15:09] VITALS: BP 110/44
[2019-12-28 19:20] VITALS: BP 129/58
[2019-12-28] MEDS: SIMVASTATIN 20 MG TABLET PO SCH (20:41)
[2019-12-28] MEDS: traZODone 50 MG TABLET. PO SCH (20:41)
[2019-12-28 23:01] VITALS: BP 118/52
[2019-12-29 03:02] VITALS: BP 123/52
[2019-12-29] MEDS: oxyCODONE/APAP 5/325 1 TAB TABLET PO PRN ×2 (05:57→10:26)
[2019-12-29] MEDS: tiZANidine 4 MG TABLET. PO PRN (07:11)
[2019-12-29 07:14] VITALS: BP 120/53
[2019-12-29] MEDS: DICLOFENAC SODIUM 1% TOPICAL GEL 100GM TUBE. TP SCH ×2 (09:00→12:56)
--- NOTE | 2019-12-29 09:04 | PDOC ---
PROGRESS NOTES History of Present Illness History of Present Illness DISCHARGE DX Chest discomfort mixed features, unstable small pulmonary emboli No central pulmonary embolism is identified although findings are suspicious for tiny emboli in the left lower lobe. emphysema. coronary calcification. BY CT left thyroid nodule. urinary tract infection anemia. admitted. consult Pulmonary consult Cardiology. Empiric IV antibiotics, home meds, deep venous thrombosis prophylaxis. Full code. Cardiac monitoring, serial enzymes, and serial EKGs. covid-19 screen May DC back to [facility] per cardiac standpoint OUT PT STRESS TEST SOON 34 min pt exam, chart review D/C PLANNING , > 50% of time spent with exam, chart review, pt care coordination Vitals Vitals Vital Signs Date Time Temp Pulse Resp B/P (MAP) Pulse Ox O2 Delivery O2 Flow Rate FiO2 12/29/19 07:14 98.2 77 18 120/53 (75) 92 Room Air 98.2 12/28/19 10:35 2.0 Physical Exam General: Alert, Oriented X3, Cooperative, No acute distress Heart: Regular rate (SR), Normal S1, Normal S2, No murmurs Lungs: Clear Abdomen: Normal bowel sounds, Soft, No tenderness, Other (obese) Extremities: No clubbing, No cyanosis, No edema, Other (trace LE edema) Skin: No breakdown, No significant lesion Assessment and Plan Assessmemt and Plan Problems Medical Problems: (1) Acute pulmonary embolism Status: Acute Comment Review of Relevant I have reviewed the following items jaron (where applicable) has been applied. Labs Laboratory Tests Test 12/27/19 11:50 12/27/19 14:55 Troponin I Quantitative < 0.017 ng/mL (0.000-0.055) < 0.017 ng/mL (0.000-0.055) Microbiology 12/27/19 Urine Culture - Final, Complete Medications Current Medications Sodium Chloride 1,000 ml @ 1,000 mls/hr 1X ONCE IV Last administered on 12/27/19at 07:29; Start 12/27/19 at 07:15; Stop 12/27/19 at 08:14; Status DC Aspirin (Mario Aspirin) 325 mg 1X ONCE PO Last administered on 12/27/19at 07:29; Start 12/27/19 at 07:30; Stop 12/27/19 at 07:31; Status DC Iohexol (Omnipaque 350 Mg/ml) 100 ml 1X ONCE IV Last administered on 12/27/19at 07:45; Start 12/27/19 at 07:45; Stop 12/27/19 at 07:46; Status DC Info (CONTRAST GIVEN -- Rx MONITORING) 1 each PRN DAILY PRN MC SEE COMMENTS; Start 12/27/19 at 07:45; Stop 12/29/19 at 07:44; Status DC Enoxaparin Sodium (Lovenox 100mg Syringe) 90 mg 1X ONCE SQ Last administered on 12/27/19at 09:09; Start 12/27/19 at 08:45; Stop 12/27/19 at 08:47; Status DC Ondansetron HCl (Zofran) 4 mg PRN Q8HRS PRN IV NAUSEA/VOMITING; Start 12/27/19 at 09:00; Stop 12/28/19 at 08:59; Status DC Ceftriaxone Sodium (Rocephin) 1 gm Q24H IVP Last administered on 12/28/19at 13:56; Start 12/27/19 at 13:00 Acetaminophen (Tylenol) 650 mg PRN Q4HRS PRN PO FEVER; Start 12/27/19 at 12:30 Dipyridamole/ Aspirin (Aggrenox) 1 cap BID PO Last administered on 12/28/19at 20:39; Start 12/27/19 at 21:00 Calcium Carbonate/ Glycine (Oscal) 500 mg PRN Q12HR PRN PO INDIGESTION; Start 12/27/19 at 12:30 Cetirizine HCl (ZyrTEC) 10 mg DAILY PO Last administered on 12/28/19at 08:38; Start 12/28/19 at 09:00 Diclofenac Sodium (Voltaren) 1 sheron QID TP Last administered on 12/28/19at 20:42; Start 12/27/19 at 13:00 Famotidine (Pepcid) 20 mg BID PO Last administered on 12/28/19at 20:41; Start 12/27/19 at 21:00 Ferrous Sulfate (Feosol) 325 mg DAILY PO Last administered on 12/28/19at 08:40; Start 12/28/19 at 09:00 Furosemide (Lasix) 60 mg DAILY PO Last administered on 12/28/19at 08:39; Start 12/28/19 at 09:00 Guaifenesin (Mucinex) 600 mg DAILY PO Last administered on 12/28/19at 08:39; Start 12/28/19 at 09:00 Levetiracetam (Keppra) 1,000 mg DAILY PO Last administered on 12/28/19at 08:40; Start 12/28/19 at 09:00 Levetiracetam (Keppra) 1,500 mg HS PO Last administered on 12/28/19at 20:40; Start 12/27/19 at 21:00 Levothyroxine Sodium (Synthroid) 75 mcg DAILY PO Last administered on 12/28/19 08:40; Start 12/28/19 at 09:00 Lidocaine (Lidoderm) 1 patch DAILY TP Last administered on 12/28/19at 08:41; Start 12/28/19 at 09:00 Oxycodone/ Acetaminophen (Percocet 5/325) 1 tab PRN DAILY PRN PO PAIN; Start 12/27/19 at 12:30; Stop 12/27/19 at 12:38; Status DC Oxycodone/ Acetaminophen (Percocet 5/325) 1 tab PRN Q4HRS PRN PO PAIN SEVERE Last administered on 12/29/19at 05:57; Start 12/27/19 at 12:30 Polyethylene Glycol (miraLAX PACKET) 17 gm PRN DAILY PRN PO CONSTIPATION; Start 12/27/19 at 12:30 Ropinirole HCl (Requip) 1 mg PRN DAILY PRN PO SEE COMMENTS Last administered on 12/27/19at 14:49; Start 12/27/19 at 12:30 Ropinirole HCl (Requip) 1 mg BID PO Last administered on 12/28/19at 20:40; Start 12/27/19 at 21:00 Senna/Docusate Sodium (Senna Plus) 1 tab BID PO Last administered on 12/28/19at 20:40; Start 12/27/19 at 21:00 Sertraline HCl (Zoloft) 50 mg DAILY PO Last administered on 12/28/19at 08:40; Start 6/17/20 at 09:00 Simvastatin (Zocor) 20 mg QHS PO Last administered on 12/28/19at 20:41; Start 12/27/19 at 21:00 Tramadol HCl (Ultram) 50 mg PRN Q6HRS PRN PO PAIN MILD TO MOD; Start 12/27/19 at 12:30 Trazodone HCl (Desyrel) 25 mg QHS PO Last administered on 12/28/19at 20:41; Start 12/27/19 at 21:00 Cyanocobalamin (Vitamin B-12) 1,000 mcg DAILY PO Last administered on 12/28/19at 08:40; Start 12/28/19 at 09:00 Diphenhydramine HCl (Benadryl) 25 mg PRN Q4HRS PRN PO ITCHING; Start 12/27/19 at 13:00 Menthol/Methyl Salicylate (Bengay Greaseless Cream) 1 sheron PRN QID PRN TP MUSCLE PAIN; Start 12/27/19 at 13:00; Stop 12/28/19 at 13:47; Status DC Non-Formulary Medication (Melatonin ) 2 tab QHS PO ; Start 12/27/19 at 21:00; Stop 12/27/19 at 12:37; Status DC Multivitamins (Thera M Plus) 1 tab DAILY PO Last administered on 12/28/19at 08:40; Start 12/28/19 at 09:00 Potassium Chloride (Klor-Con) 20 meq DAILYWBKFT PO Last administered on 12/28/19at 08:40; Start 12/28/19 at 08:00 Tizanidine HCl (Zanaflex) 4 mg PRN Q8HRS PRN PO MUSCLE SPASMS Last administered on 12/29/19at 07:11; Start 12/27/19 at 16:30 Menthol/Methyl Salicylate (Bengay Greaseless Cream) 1 sheron PRN QID PRN TP MUSCLE PAIN Last administered on 12/28/19at 14:03; Start 12/28/19 at 13:45 Active Scripts Active Reported Trazodone Hcl 50 Mg Tablet 0.5 Tab PO QHS Tramadol Hcl 50 Mg Tablet 50 Mg PO Q6HRS PRN Sertraline Hcl 50 Mg Tablet 50 Mg PO DAILY Requip (Ropinirole Hcl) 0.25 Mg Tablet 1 Mg PO BID Ropinirole Hcl 1 Mg Tablet 1 Mg PO PRN DAILY PRN Synthroid (Levothyroxine Sodium) 75 Mcg Tablet 1 Tab PO DAILY Klor-Con 10 (Potassium Chloride) 10 Meq Tablet.er 2 Tab PO DAILY 30 Days Percocet 5-325 mg Tablet (Oxycodone HCl/Acetaminophen) 1 Each Tablet 1 Tab PO FL N DAILY PRN MDD 2 Tablet(s) 30 Days Percocet 5-325 mg Tablet (Oxycodone HCl/Acetaminophen) 1 Each Tablet 1 Tab PO PRN Q4HRS PRN MDD 2 Tablet(s) 5 Days Furosemide 20 Mg Tablet 3 Tab PO DAILY Ferrous Sulfate 325 Mg Tablet 1 Tab PO DAILY Benadryl Allergy (Diphenhydramine Hcl) 25 Mg Tablet 25 Mg PO PRN Q4HRS PRN Aspercreme (Lidocaine HCl) 76.5 Gm Cream..g. 1 Sheron TP PRN Q6HRS PRN 30 Days Lidocaine PATCH (Lidocaine) 1 Each Adh..patch 1 Each TP DAILY REMOVE AFTER 12 HOURS Simvastatin 20 Mg Tablet 1 Tab PO QHS Senokot-S Tablet (Sennosides/Docusate Sodium) 1 Each Tablet 1 Tab PO BID 30 Days Pepcid (Famotidine) 20 Mg Tablet 20 Mg PO BID Mucinex (Guaifenesin) 600 Mg Tablet.er 1 Tab PO DAILY 10 Days Miralax (Polyethylene Glycol 3350) 17 Gm Powd.pack 1 Packet PO PRN DAILY PRN 2 Days dissolve in water Melatonin 3 Mg Tablet 2 Tab PO QHS Keppra (Levetiracetam) 500 Mg Tablet 3 Tab PO HS 30 Days Keppra (Levetiracetam) 500 Mg Tablet 2 Tab PO DAILY 30 Days Voltaren (Diclofenac Sodium) 100 Gm Gel..gram. 1 Gm TP QID 30 Days apply to affected area(s) B-12 (Cyanocobalamin (Vitamin B-12)) 1,000 Mcg Tablet.er 1 Tab PO DAILY 30 Days Cetirizine Hcl 10 Mg Tablet 1 Tab PO DAILY Multi Vitamin Daily (Multivitamin) 1 Each Tablet 1 Tab PO DAILY 30 Days Calcium Carbonate 500 Mg Tablet 1 Tab PO PRN Q12HR PRN 30 Days Aggrenox 25 Mg-200 Mg Capsule (Aspirin/Dipyridamole) 1 Each Cpmp.12hr 1 Cap PO BID Acetaminophen 325 Mg Tablet 2 Tab PO Q4HRS PRN 30 Days Vitals/I & O Vital Sign - Last 24 Hours 12/28/19 12/28/19 12/28/19 12/28/19 09:54 10:35 11:00 15:09 Temp 98.6 97.9 98.6 97.9 Pulse 74 67 Resp 18 18 B/P (MAP) 118/56 (76) 110/44 (66) Pulse Ox 96 94 O2 Delivery Nasal Cannula Nasal Cannula Room Air Room Air O2 Flow Rate 2.0 2.0 12/28/19 12/28/19 12/28/19 12/28/19 16:53 18:00 19:20 20:20 Temp 97.9 97.9 Pulse 69 Resp 20 B/P (MAP) 129/58 (81) Pulse Ox 94 O2 Delivery Room Air Room Air Room Air Room Air 12/28/19 12/28/19 12/29/19 12/29/19 22:54 23:01 03:02 03:12 Temp 98.0 97.8 98.0 97.8 Pulse 68 82 Resp 16 18 18 B/P (MAP) 118/52 (74) 123/52 (75) Pulse Ox 94 O2 Delivery Room Air Room Air Room Air 12/29/19 12/29/19 12/29/19 05:57 07:12 07:14 Temp 98.2 98.2 Pulse 77 Resp 18 B/P (MAP) 120/53 (75) Pulse Ox 92 O2 Delivery Room Air Room Air Room Air Intake and Output 12/28/19 12/28/19 12/29/19 15:00 23:00 07:00 Intake Total 480 ml 840 ml 200 ml Output Total 700 ml 700 ml 1400 ml Balance -220 ml 140 ml -1200 ml ROSALVA TRAN MD Dec 29, 2019 09:04
[2019-12-29] MEDS: MULTIVITAMIN with MINERAL TABLET. PO SCH (09:22)
[2019-12-29] MEDS: CYANOCOBALAMIN (VITAMIN B-12) 1,000 MCG TABLET. PO SCH (09:22)
[2019-12-29] MEDS: SERTRALINE 50 MG TABLET. PO SCH (09:24)
[2019-12-29] MEDS: SENNOSIDES/DOCUSATE 8.6/50MG TABLET. PO SCH (09:24)
[2019-12-29] MEDS: FERROUS SULFATE 325 MG TABLET. PO SCH (09:24)
[2019-12-29] MEDS: levETIRAcetam 500 MG TABLET PO SCH (09:26)
[2019-12-29] MEDS: ASPIRIN/DIPYRIDAMOLE 200/25MG CAP.ER.12H. PO SCH (09:26)
[2019-12-29] MEDS: FAMOTIDINE 20 MG TABLET. PO SCH (09:26)
[2019-12-29] MEDS: FUROSEMIDE 20 MG TABLET PO SCH (09:26)
[2019-12-29] MEDS: rOPINIRole 1 MG TABLET. PO PRN (09:26)
[2019-12-29] MEDS: CETIRIZINE HCL 10 MG TABLET. PO SCH (09:26)
[2019-12-29] MEDS: POTASSIUM CHLORIDE 10 MEQ TABLET.ER. PO SCH (09:26)
[2019-12-29] MEDS: LEVOTHYROXINE 75 MCG TABLET PO SCH (09:27)
[2019-12-29] MEDS: LIDOCAINE (700MG/PATCH) PATCH. TP SCH (09:28)
--- NOTE | 2019-12-29 09:52 | NUR ---
SS following up with discharge planning. SS reviewed pt chart and discussed with pt RN. Pt is from LTC resident from [facility], ; fax [phone]. Pt able to return once COVID19 test is resulted. SS phoned and faxed clinical updates to [facility]. SS will continue to follow for discharge planning.
[2019-12-29 11:20] VITALS: BP 108/56
--- NOTE | 2019-12-29 11:23 | PDOC ---
DELMI CARLISLE RAILROADER 12/29/19 1123: CARDIO Progress Notes Date and Time Date of Service 12/29/2019 Time of Evaluation 0910 Subjective Subjective: No Chest Pain, No shortness of breath, No Palpitations Vitals Vitals Vital Signs Date Time Temp Pulse Resp B/P (MAP) Pulse Ox O2 Delivery O2 Flow Rate FiO2 12/29/19 11:20 98.3 75 20 108/56 (73) 92 Room Air 98.3 12/28/19 10:35 2.0 Weight Weight [ ] Input and Output Intake and Output Intake and Output 12/29/19 07:00 Intake Total 1520 ml Output Total 2800 ml Balance -1280 ml Intake Oral 1520 ml Output Urine Total 2800 ml Microbiology Micro Microbiology 12/27/19 Urine Culture - Final, Complete Physical Exam HEENT: Neck Supple W Full Motion Chest: Symmetric LUNGS: Clear to Auscultation Heart: S1S2, RRR (SR) Abdomen: Soft N/T, Other (obese) Extremities: No Calf Tenderness Neurology: alert, oriented, follow commands Assessment Assessment 1. Atypical chest pain: initial trop nml. No acute changes to EKG. Recent EF and WM nml. suspect GI. None further overnight 2. Microcytic hypochromic anemia with thrombocytosis: notable for past RENALDO. no overt bleed. 4. Coronary calcifications: per CTA 5. HTN: controlled, on lasix for leg edema 6. HLP: on goal 7. Obesity with hx of MANSOOR Recommendations 1. No PE per pulmonary. On home aggrenox, may restart. 2. Outpt stress test and follow up as scheduled 3. PPI or H2 kam per PCP. Restart statin 4. May DC back to SNU per cardiac standpoint Justicifation of Admission Dx: Justifications for Admission: Justification of Admission Dx: Yes ABHILASH MCLEAN MD 12/29/192058: CARDIO Progress Notes Assessment Assessment Patient seen and examined. Agree with NURSING TECH's assessment and plan. CP with atypical features OR ruled out No acute PE per pulm team Plan ischemic eval as outpatient DELMI CARLISLE RAILROADER Dec 29, 2019 11:23 ABHILASH MCLEAN MD Dec 29, 2019 20:59
--- NOTE | 2019-12-29 11:33 | PDOC ---
PULMONARY PROGRESS NOTES Subjective no soa no CP Vitals Vital Signs Date Time Temp Pulse Resp B/P (MAP) Pulse Ox O2 Delivery O2 Flow Rate FiO2 12/29/19 11:20 98.3 75 20 108/56 (73) 92 Room Air 98.3 12/28/19 10:35 2.0 ROS: No Chest Pain General: Alert, Oriented X4, No acute distress Lungs: Clear Cardiovascular: S1 Abdomen: Soft Neuro Exam: Alert Extremities: No Edema Skin: Warm Labs Laboratory Tests Test 12/27/19 11:50 12/27/19 14:55 Troponin I Quantitative < 0.017 ng/mL (0.000-0.055) < 0.017 ng/mL (0.000-0.055) Medications Active Scripts Medications Dose Route/Sig Max Daily Dose Days Date Category Dose Instructions Trazodone Hcl 50 Mg Tablet 0.5 Tab PO QHS 12/27/19 Reported Tramadol Hcl 50 Mg Tablet 50 Mg PO Q6HRS PRN 12/27/19 Reported Sertraline Hcl 50 Mg Tablet 50 Mg PO DAILY 12/27/19 Reported Requip (Ropinirole Hcl) 0.25 Mg Tablet 1 Mg PO BID 12/27/19 Reported Ropinirole Hcl 1 Mg Tablet 1 Mg PO PRN DAILY PRN 12/27/19 Reported Synthroid (Levothyroxine Sodium) 75 Mcg Tablet 1 Tab PO DAILY 12/27/19 Reported Klor-Con 10 (Potassium Chloride) 10 Meq Tablet.er 2 Tab PO DAILY 30 12/27/19 Reported Percocet 5-325 mg Tablet (Oxycodone HCl/Acetaminophen) 1 Each Tablet 1 Tab PO PRN DAILY PRN MDD 2 Tablet(s) 30 12/27/19 Reported Percocet 5-325 mg Tablet (Oxycodone HCl/Acetaminophen) 1 Each Tablet 1 Tab PO PRN Q4HRS PRN MDD 2 Tablet(s) 5 12/27/19 Reported Furosemide 20 Mg Tablet 3 Tab PO DAILY 12/27/19 Reported Ferrous Sulfate 325 Mg Tablet 1 Tab PO DAILY 12/27/19 Reported Benadryl Allergy (Diphenhydramine Hcl) 25 Mg Tablet 25 Mg PO PRN Q4HRS PRN 12/27/19 Reported Aspercreme (Lidocaine HCl) 76.5 Gm Cream..g. 1 Sheron TP PRN Q6HRS PRN 30 12/27/19 Reported Lidocaine PATCH (Lidocaine) 1 Each Adh..patch 1 Each TP DAILY 12/27/19 Reported REMOVE AFTER 12 HOURS Simvastatin 20 Mg Tablet 1 Tab PO QHS 08/05/19 Reported Senokot-S Tablet (Sennosides/Docusate Sodium) 1 Each Tablet 1 Tab PO BID 30 08/05/19 Reported Pepcid (Famotidine) 20 Mg Tablet 20 Mg PO BID 08/05/19 Reported Mucinex (Guaifenesin) 600 Mg Tablet.er 1 Tab PO DAILY 10 08/05/19 Reported Miralax (Polyethylene Glycol 3350) 17 Gm Powd.pack 1 Packet PO PRN DAILY PRN 2 08/05/19 Reported dissolve in water Melatonin 3 Mg Tablet 2 Tab PO QHS 08/05/19 Reported Keppra (Levetiracetam) 500 Mg Tablet 3 Tab PO HS 30 08/05/19 Reported Keppra (Levetiracetam) 500 Mg Tablet 2 Tab PO DAILY 30 08/05/19 Reported Voltaren (Diclofenac Sodium) 100 Gm Gel..gram. 1 Gm TP QID 30 08/05/19 Reported apply to affected area(s) B-12 (Cyanocobalamin (Vitamin B-12)) 1,000 Mcg Tablet.er 1 Tab PO DAILY 30 08/05/19 Reported Cetirizine Hcl 10 Mg Tablet 1 Tab PO DAILY 08/05/19 Reported Multi Vitamin Daily (Multivitamin) 1 Each Tablet 1 Tab PO DAILY 30 08/05/19 Reported Calcium Carbonate 500 Mg Tablet 1 Tab PO PRN Q12HR PRN 30 08/05/19 Reported Aggrenox 25 Mg-200 Mg Capsule (Aspirin/Dipyridamole) 1 Each Cpmp.12hr 1 Cap PO BID 08/05/19 Reported Acetaminophen 325 Mg Tablet 2 Tab PO Q4HRS PRN 30 08/05/19 Reported Impression . Substernal chest pain without any dyspnea. I am not convinced with a CTA chest of tiny pulmonary embolism in the left lower lobe. I have spoken with the radiologist who concurred with me. At this time, I do not think that there is any clinically significant pulmonary embolism. The other differential diagnosis would be to consider anginal pain and also GERD would be another possibility. Plan . 1. From a pulmonary standpoint, does not feel like she needs anticoagulation. 2. Cardiology.REC 3. GI cocktail if no cardiac evidence of chest pain. 4. OP stress test We will follow along with you. DANY TALAVERA MD Dec 29, 2019 11:33
[2019-12-29] MEDS: rOPINIRole 0.25 MG TABLET. PO SCH (12:56)
[2019-12-29] MEDS: cefTRIAXone IV Push 1 GM VIAL. IVP SCH (12:57)
--- NOTE | 2019-12-29 13:26 | PDOC3 ---
Discharge Summary Date of Admission: Dec 27, 2019 Date of Discharge: Dec 29, 2019 Follow-Up: 1-2 days Admitting Diagnosis comment: DISCHARGE DX Chest discomfort mixed features, unstable small pulmonary emboli No central pulmonary embolism is identified although findings are suspicious for tiny emboli in the left lower lobe. emphysema. coronary calcification. BY CT left thyroid nodule. urinary tract infection anemia. admitted. consult Pulmonary consult Cardiology. Empiric IV antibiotics, home meds, deep venous thrombosis prophylaxis. Full code. Cardiac monitoring, serial enzymes, and serial EKGs. covid-19 screen May DC back to SNU per cardiac standpoint OUT PT STRESS TEST SOON 34 min pt exam, chart review D/C PLANNING , > 50% of time spent with exam, chart review, pt care coordination Vitals Vitals Vital Signs Date Time Temp Pulse Resp B/P (MAP) Pulse Ox O2 Delivery O2 Flow Rate FiO2 12/29/19 07:14 98.2 77 18 120/53 (75) 92 Room Air 98.2 12/28/19 10:35 2.0 Physical Exam General: Alert, Oriented X3, Cooperative, No acute distress Heart: Regular rate (SR), Normal S1, Normal S2, No murmurs Lungs: Clear Abdomen: Normal bowel sounds, Soft, No tenderness, Other (obese) Extremities: No clubbing, No cyanosis, No edema, Other (trace LE edema) Skin: No breakdown, No significant lesion Assessment and Plan Assessmemt and Plan Problems Medical Problems: (1) Acute pulmonary embolism Status: Acute Comment Review of Relevant I have reviewed the following items jaron (where applicable) has been applied. Labs Laboratory Tests Test 12/27/19 11:50 12/27/19 14:55 Troponin I Quantitative < 0.017 ng/mL (0.000-0.055) < 0.017 ng/mL (0.000-0.055) Microbiology 12/27/19 Urine Culture - Final, Complete Medications Current Medications Sodium Chloride 1,000 ml @ 1,000 mls/hr 1X ONCE IV Last administered on 12/27/19at 07:29; Start 12/27/19 at 07:15; Stop 12/27/19 at 08:14; Status DC Aspirin (Mario Aspirin) 325 mg 1X ONCE PO Last administered on 12/27/19at 07:29; Start 12/27/19 at 07:30; Stop 12/27/19 at 07:31; Status DC Iohexol (Omnipaque 350 Mg/ml) 100 ml 1X ONCE IV Last administered on 12/27/19at 07:45; Start 12/27/19 at 07:45; Stop 12/27/19 at 07:46; Status DC Info (CONTRAST GIVEN -- Rx MONITORING) 1 each PRN DAILY PRN MC SEE COMMENTS; Start 12/27/19 at 07:45; Stop 12/29/19 at 07:44; Status DC Enoxaparin Sodium (Lovenox 100mg Syringe) 90 mg 1X ONCE SQ Last administered on 12/27/19at 09:09; Start 12/27/19 at 08:45; Stop 12/27/19 at 08:47; Status DC Ondansetron HCl (Zofran) 4 mg PRN Q8HRS PRN IV NAUSEA/VOMITING; Start 12/27/19 at 09:00; Stop 12/28/19 at 08:59; Status DC Ceftriaxone Sodium (Rocephin) 1 gm Q24H IVP Last administered on 12/28/19at 13:56; Start 12/27/19 at 13:00 Acetaminophen (Tylenol) 650 mg PRN Q4HRS PRN PO FEVER; Start 12/27/19 at 12:30 Dipyridamole/ Aspirin (Aggrenox) 1 cap BID PO Last administered on 12/28/19at 20:39; Start 12/27/19 at 21:00 Calcium Carbonate/ Glycine (Oscal) 500 mg PRN Q12HR PRN PO INDIGESTION; Start 12/27/19 at 12:30 Cetirizine HCl (ZyrTEC) 10 mg DAILY PO Last administered on 12/28/19at 08:38; Start 12/28/19 at 09:00 Diclofenac Sodium (Voltaren) 1 sheron QID TP Last administered on 12/28/19at 20:42; Start 12/27/19 at 13:00 Famotidine (Pepcid) 20 mg BID PO Last administered on 12/28/19at 20:41; Start 12/27/19 at 21:00 Ferrous Sulfate (Feosol) 325 mg DAILY PO Last administered on 12/28/19at 08:40; Start 12/28/19 at 09:00 Furosemide (Lasix) 60 mg DAILY PO Last administered on 12/28/19at 08:39; Start 12/28/19 at 09:00 Guaifenesin (Mucinex) 600 mg DAILY PO Last administered on 12/28/19at 08:39; Start 12/28/19 at 09:00 Levetiracetam (Keppra) 1,000 mg DAILY PO Last administered on 12/28/19at 08:40; Start 12/28/19 at 09:00 Levetiracetam (Keppra) 1,500 mg HS PO Last administered on 12/28/19at 20:40; Start 12/27/19 at 21:00 Levothyroxine Sodium (Synthroid) 75 mcg DAILY PO Last administered on 12/28/19at 08:40; Start 12/28/19 at 09:00 Lidocaine (Lidoderm) 1 patch DAILY TP Last administered on 12/28/19at 08:41; Start 12/28/19 at 09:00 Oxycodone/ Acetaminophen (Percocet 5/325) 1 tab PRN DAILY PRN PO PAIN; Start 12/27/19 at 12:30; Stop 12/27/19 at 12:38; Status DC Oxycodone/ Acetaminophen (Percocet 5/325) 1 tab PRN Q4HRS PRN PO PAIN SEVERE Last administered on 12/29/19at 05:57; Start 12/27/19 at 12:30 Polyethylene Glycol (miraLAX PACKET) 17 gm PRN DAILY PRN PO CONSTIPATION; Start 12/27/19 at 12:30 Ropinirole HCl (Requip) 1 mg PRN DAILY PRN PO SEE COMMENTS Last administered on 12/27/19at 14:49; Start 12/27/19 at 12:30 Ropinirole HCl (Requip) 1 mg BID PO Last administered on 12/28/19at 20:40; Start 12/27/19 at 21:00 Senna/Docusate Sodium (Senna Plus) 1 tab BID PO Last administered on 12/28/19at 20:40; Start 12/27/19 at 21:00 Sertraline HCl (Zoloft) 50 mg DAILY PO Last administered on 12/28/19at 08:40; Start 12/28/19 at 09:00 Simvastatin (Zocor) 20 mg QHS PO Last administered on 12/28/19at 20:41; Start 12/27/19 at 21:00 Tramadol HCl (Ultram) 50 mg PRN Q6HRS PRN PO PAIN MILD TO MOD; Start 12/27/19 at 12:30 Trazodone HCl (Desyrel) 25 mg QHS PO Last administered on 12/28/19at 20:41; Start 12/27/19 at 21:00 Cyanocobalamin (Vitamin B-12) 1,000 mcg DAILY PO Last administered on 12/28/19at 08:40; Start 12/28/19 at 09:00 Diphenhydramine HCl (Benadryl) 25 mg PRN Q4HRS PRN PO ITCHING; Start 12/27/19 at 13:00 Menthol/Methyl Salicylate (Bengay Greaseless Cream) 1 sheron PRN QID PRN TP MUSCLE PAIN; Start 12/27/19 at 13:00; Stop 12/28/19 at 13:47; Status DC Non-Formulary Medication (Melatonin ) 2 tab QHS PO ; Start 12/27/19 at 21:00; Stop 12/27/19 at 12:37; Status DC Multivitamins (Thera M Plus) 1 tab DAILY PO Last administered on 12/28/19at 08:40; Start 12/28/19 at 09:00 Potassium Chloride (Klor-Con) 20 meq DAILYWBKFT PO Last administered on 12/28/19at 08:40; Start 12/28/19 at 08:00 Tizanidine HCl (Zanaflex) 4 mg PRN Q8HRS PRN PO MUSCLE SPASMS Last administered on 12/29/19at 07:11; Start 12/27/19 at 16:30 Menthol/Methyl Salicylate (Bengay Greaseless Cream) 1 sheron PRN QID PRN TP MUSCLE PAIN Last administered on 12/28/19at 14:03; Start 12/28/19 at 13:45 Active Scripts Active Reported Trazodone Hcl 50 Mg Tablet 0.5 Tab PO QHS Tramadol Hcl 50 Mg Tablet 50 Mg PO Q6HRS PRN Sertraline Hcl 50 Mg Tablet 50 Mg PO DAILY Requip (Ropinirole Hcl) 0.25 Mg Tablet 1 Mg PO BID Ropinirole Hcl 1 Mg Tablet 1 Mg PO PRN DAILY PRN Synthroid (Levothyroxine Sodium) 75 Mcg Tablet 1 Tab PO DAILY Klor-Con 10 (Potassium Chloride) 10 Meq Tablet.er 2 Tab PO DAILY 30 Days Percocet 5-325 mg Tablet (Oxycodone HCl/Acetaminophen) 1 Each Tablet 1 Tab PO PRN DAILY PRN MDD 2 Tablet(s) 30 Days Percocet 5-325 mg Tablet (Oxycodone HCl/Acetaminophen) 1 Each Tablet 1 Tab PO PRN Q4HRS PRN MDD 2 Tablet(s) 5 Days Furosemide 20 Mg Tablet 3 Tab PO DAILY Ferrous Sulfate 325 Mg Tablet 1 Tab PO DAILY Benadryl Allergy (Diphenhydramine Hcl) 25 Mg Tablet 25 Mg PO PRN Q4HRS PRN Aspercreme (Lidocaine HCl) 76.5 Gm Cream..g. 1 Sheron TP PRN Q6HRS PRN 30 Days Lidocaine PATCH (Lidocaine) 1 Each Adh..patch 1 Each TP DAILY REMOVE AFTER 12 HOURS Simvastatin 20 Mg Tablet 1 Tab PO QHS Senokot-S Tablet (Sennosides/Docusate Sodium) 1 Each Tablet 1 Tab PO BID 30 Days Pepcid (Famotidine) 20 Mg Tablet 20 Mg PO BID Mucinex (Guaifenesin) 600 Mg Tablet.er 1 Tab PO DAILY 10 Days Miralax (Polyethylene Glycol 3350) 17 Gm Powd.pack 1 Packet PO PRN DAILY PRN 2 Days dissolve in water Melatonin 3 Mg Tablet 2 Tab PO QHS Keppra (Levetiracetam) 500 Mg Tablet 3 Tab PO HS 30 Days Keppra (Levetiracetam) 500 Mg Tablet 2 Tab PO DAILY 30 Days Voltaren (Diclofenac Sodium) 100 Gm Gel..gram. 1 Gm TP QID 30 Days apply to affected area(s) B-12 (Cyanocobalamin (Vitamin B-12)) 1,000 Mcg Tablet.er 1 Tab PO DAILY 30 Days Cetirizine Hcl 10 Mg Tablet 1 Tab PO DAILY Multi Vitamin Daily (Multivitamin) 1 Each Tablet 1 Tab PO DAILY 30 Days Calcium Carbonate 500 Mg Tablet 1 Tab PO PRN Q12HR PRN 30 Days Aggrenox 25 Mg-200 Mg Capsule (Aspirin/Dipyridamole) 1 Each Cpmp.12hr 1 Cap PO BID Acetaminophen 325 Mg Tablet 2 Tab PO Q4HRS PRN 30 Days Vitals/I & O Vital Sign - Last 24 Hours 12/28/19 12/28/19 12/28/19 12/28/19 09:54 10:35 11:00 15:09 Temp 98.6 97.9 98.6 97.9 Pulse 74 67 Resp 18 18 B/P (MAP) 118/56 (76) 110/44 (66) Pulse Ox 96 94 O2 Delivery Nasal Cannula Nasal Cannula Room Air Room Air O2 Flow Rate 2.0 2.0 12/28/19 12/28/19 12/28/19 12/28/19 16:53 18:00 19:20 20:20 Temp 97.9 97.9 Pulse 69 Resp 20 B/P (MAP) 129/58 (81) Pulse Ox 94 O2 Delivery Room Air Room Air Room Air Room Air 12/28/19 12/28/19 12/29/19 12/29/19 22:54 23:01 03:02 03:12 Temp 98.0 97.8 98.0 97.8 Pulse 68 82 Resp 16 18 18 B/P (MAP) 118/52 (74) 123/52 (75) Pulse Ox 94 O2 Delivery Room Air Room Air Room Air 12/29/19 12/29/19 12/29/19 05:57 07:12 07:14 Temp 98.2 98.2 Pulse 77 Resp 18 B/P (MAP) 120/53 (75) Pulse Ox 92 O2 Delivery Room Air Room Air Room Air Intake and Output 12/28/19 12/28/19 12/29/19 15:00 23:00 07:00 Intake Total 480 ml 840 ml 200 ml Output Total 700 ml 700 ml 1400 ml Balance -220 ml 140 ml -1200 ml Nutrition Consultation Nutrition Consultation Chest Pain Indications Abdominal Pain Indications TIA Indications FINAL DIAGNOSIS Problems Medical Problems: (1) Acute pulmonary embolism Status: Acute Brief Hospital Course Ms. Granger is a 64 old [sex] who presented with [ UNSTABLE ANGINA ] CONDITION AT DISCHARGE: Improved Discharge Medications Current Medications Sodium Chloride 1,000 ml @ 1,000 mls/hr 1X ONCE IV Last administered on 12/27/19at 07:29; Start 12/27/19 at 07:15; Stop 12/27/19 at 08:14; Status DC Aspirin (Mario Aspirin) 325 mg 1X ONCE PO Last administered on 12/27/19at 07:29; Start 12/27/19 at 07:30; Stop 12/27/19 at 07:31; Status DC Iohexol (Omnipaque 350 Mg/ml) 100 ml 1X ONCE IV Last administered on 12/27/19at 07:45; Start 12/27/19 at 07:45; Stop 12/27/19 at 07:46; Status DC Info (CONTRAST GIVEN -- Rx MONITORING) 1 each PRN DAILY PRN MC SEE COMMENTS; Start 12/27/19 at 07:45; Stop 12/29/19 at 07:44; Status DC Enoxaparin Sodium (Lovenox 100mg Syringe) 90 mg 1X ONCE SQ Last administered on 12/27/19at 09:09; Start 12/27/19 at 08:45; Stop 12/27/19 at 08:47; Status DC Ondansetron HCl (Zofran) 4 mg PRN Q8HRS PRN IV NAUSEA/VOMITING; Start 12/27/19 at 09:00; Stop 12/28/19 at 08:59; Status DC Ceftriaxone Sodium (Rocephin) 1 gm Q24H IVP Last administered on 12/29/19at 12:57; Start 12/27/19 at 13:00 Acetaminophen (Tylenol) 650 mg PRN Q4HRS PRN PO FEVER; Start 12/27/19 at 12:30 Dipyridamole/ Aspirin (Aggrenox) 1 cap BID PO Last administered on 12/29/19at 09:26; Start 12/27/19 at 21:00 Calcium Carbonate/ Glycine (Oscal) 500 mg PRN Q12HR PRN PO INDIGESTION; Start 12/27/19 at 12:30 Cetirizine HCl (ZyrTEC) 10 mg DAILY PO Last administered on 12/29/19at 09:26; Start 12/28/19 at 09:00 Diclofenac Sodium (Voltaren) 1 sheron QID TP Last administered on 12/29/19at 12:56; Start 12/27/19 at 13:00 Famotidine (Pepcid) 20 mg BID PO Last administered on 12/29/19at 09:26; Start 12/27/19 at 21:00 Ferrous Sulfate (Feosol) 325 mg DAILY PO Last administered on 12/29/19 09:24; Start 12/28/19 at 09:00 Furosemide (Lasix) 60 mg DAILY PO Last administered on 12/29/19 09:26; Start 12/28/19 at 09:00 Guaifenesin (Mucinex) 600 mg DAILY PO Last administered on 12/29/19 09:25; Start 12/28/19 at 09:00 Levetiracetam (Keppra) 1,000 mg DAILY PO Last administered on 12/29/19 09:26; Start 12/28/19 at 09:00 Levetiracetam (Keppra) 1,500 mg HS PO Last administered on 12/28/19 20:40; Start 12/27/19 at 21:00 Levothyroxine Sodium (Synthroid) 75 mcg DAILY PO Last administered on 12/29/19 09:27; Start 12/28/19 at 09:00 Lidocaine (Lidoderm) 1 patch DAILY TP Last administered on 12/29/19 09:28; S tart 12/28/19 at 09:00 Oxycodone/ Acetaminophen (Percocet 5/325) 1 tab PRN DAILY PRN PO PAIN; Start 12/27/19 at 12:30; Stop 12/27/19 at 12:38; Status DC Oxycodone/ Acetaminophen (Percocet 5/325) 1 tab PRN Q4HRS PRN PO PAIN SEVERE Last administered on 12/29/19at 10:26; Start 12/27/19 at 12:30 Polyethylene Glycol (miraLAX PACKET) 17 gm PRN DAILY PRN PO CONSTIPATION; Start 12/27/19 at 12:30 Ropinirole HCl (Requip) 1 mg PRN DAILY PRN PO SEE COMMENTS Last administered on 12/29/19 09:26; Start 12/27/19 at 12:30 Ropinirole HCl (Requip) 1 mg BID PO Last administered on 12/29/19at 12:56; Start 12/27/19 at 21:00 Senna/Docusate Sodium (Senna Plus) 1 tab BID PO Last administered on 12/29/19 09:24; Start 12/27/19 at 21:00 Sertraline HCl (Zoloft) 50 mg DAILY PO Last administered on 12/29/19 09:24; Start 12/28/19 at 09:00 Simvastatin (Zocor) 20 mg QHS PO Last administered on 12/28/19at 20:41; Start 12/27/19 at 21:00 Tramadol HCl (Ultram) 50 mg PRN Q6HRS PRN PO PAIN MILD TO MOD; Start 12/27/19 at 12:30 Trazodone HCl (Desyrel) 25 mg QHS PO Last administered on 12/28/19at 20:41; Start 12/27/19 at 21:00 Cyanocobalamin (Vitamin B-12) 1,000 mcg DAILY PO Last administered on 12/29/19at 09:22; Start 12/28/19 at 09:00 Diphenhydramine HCl (Benadryl) 25 mg PRN Q4HRS PRN PO ITCHING; Start 12/27/19 at 13:00 Menthol/Methyl Salicylate (Bengay Greaseless Cream) 1 sheron PRN QID PRN TP MUSCLE PAIN; Start 12/27/19 at 13:00; Stop 12/28/19 at 13:47; Status DC Non-Formulary Medication (Melatonin ) 2 tab QHS PO ; Start 12/27/19 at 21:00; Stop 12/27/19 at 12:37; Status DC Multivitamins (Thera M Plus) 1 tab DAILY PO Last administered on 12/29/19at 09:22; Start 12/28/19 at 09:00 Potassium Chloride (Klor-Con) 20 meq DAILYWBKFT PO Last administered on 12/29/19at 09:26; Start 12/28/19 at 08:00 Tizanidine HCl (Zanaflex) 4 mg PRN Q8HRS PRN PO MUSCLE SPASMS Last administered on 12/29/19at 07:11; Start 12/27/19 at 16:30 Menthol/Methyl Salicylate (Bengay Greaseless Cream) 1 sheron PRN QID PRN TP MUSCLE PAIN Last administered on 12/28/19at 14:03; Start 12/28/19 at 13:45 Lactobacillus Rhamnosus (Culturelle) 1 cap BID PO ; Start 12/29/19 at 21:00 Active Scripts Active Reported Trazodone Hcl 50 Mg Tablet 0.5 Tab PO QHS Tramadol Hcl 50 Mg Tablet 50 Mg PO Q6HRS PRN Sertraline Hcl 50 Mg Tablet 50 Mg PO DAILY Requip (Ropinirole Hcl) 0.25 Mg Tablet 1 Mg PO BID Ropinirole Hcl 1 Mg Tablet 1 Mg PO PRN DAILY PRN Synthroid (Levothyroxine Sodium) 75 Mcg Tablet 1 Tab PO DAILY Klor-Con 10 (Potassium Chloride) 10 Meq Tablet.er 2 Tab PO DAILY 30 Days Percocet 5-325 mg Tablet (Oxycodone HCl/Acetaminophen) 1 Each Tablet 1 Tab PO PRN DAILY PRN MDD 2 Tablet(s) 30 Days Percocet 5-325 mg Tablet (Oxycodone HCl/Acetaminophen) 1 Each Tablet 1 Tab PO PRN Q4HRS PRN MDD 2 Tablet(s) 5 Days Furosemide 20 Mg Tablet 3 Tab PO DAILY Ferrous Sulfate 325 Mg Tablet 1 Tab PO DAILY Benadryl Allergy (Diphenhydramine Hcl) 25 Mg Tablet 25 Mg PO PRN Q4HRS PRN Aspercreme (Lidocaine HCl) 76.5 Gm Cream..g. 1 Sheron TP PRN Q6HRS PRN 30 Days Lidocaine PATCH (Lidocaine) 1 Each Adh..patch 1 Each TP DAILY REMOVE AFTER 12 HOURS Simvastatin 20 Mg Tablet 1 Tab PO QHS Senokot-S Tablet (Sennosides/Docusate Sodium) 1 Each Tablet 1 Tab PO BID 30 Days Pepcid (Famotidine) 20 Mg Tablet 20 Mg PO BID Mucinex (Guaifenesin) 600 Mg Tablet.er 1 Tab PO DAILY 10 Days Miralax (Polyethylene Glycol 3350) 17 Gm Powd.pack 1 Packet PO PRN DAILY PRN 2 Days dissolve in water Melatonin 3 Mg Tablet 2 Tab PO QHS Keppra (Levetiracetam) 500 Mg Tablet 3 Tab PO HS 30 Days Keppra (Levetiracetam) 500 Mg Tablet 2 Tab PO DAILY 30 Days Voltaren (Diclofenac Sodium) 100 Gm Gel..gram. 1 Gm TP QID 30 Days apply to affected area(s) B-12 (Cyanocobalamin (Vitamin B-12)) 1,000 Mcg Tablet.er 1 Tab PO DAILY 30 Days Cetirizine Hcl 10 Mg Tablet 1 Tab PO DAILY Multi Vitamin Daily (Multivitamin) 1 Each Tablet 1 Tab PO DAILY 30 Days Calcium Carbonate 500 Mg Tablet 1 Tab PO PRN Q12HR PRN 30 Days Aggrenox 25 Mg-200 Mg Capsule (Aspirin/Dipyridamole) 1 Each Cpmp.12hr 1 Cap PO BID Acetaminophen 325 Mg Tablet 2 Tab PO Q4HRS PRN 30 Days Vital Signs Vital Signs Date Time Temp Pulse Resp B/P (MAP) Pulse Ox O2 Delivery O2 Flow Rate FiO2 12/29/19 11:20 98.3 75 20 108/56 (73) 92 Room Air 98.3 12/28/19 10:35 2.0 Labs Laboratory Tests Test 12/27/19 14:55 Troponin I Quantitative < 0.017 ng/mL (0.000-0.055) Allergies Allergies Coded Allergies Type Severity Reaction Last Updated Verified No Known Drug Allergies 08/05/19 No Disposition/Orders: Other (D/C TO SNF) Justicifation of Admission Dx: Justifications for Admission: Justification of Admission Dx: Yes ROSALVA TRAN MD Dec 29, 2019 13:26
[2019-12-29] MEDS ORDERED: METH57CR17 TP (13:29)
[2019-12-29] MEDS ORDERED: LACT1CAP19 PO (13:29)
[2019-12-29] MEDS ORDERED: AMOX1TAB58 PO (13:29)
--- NOTE | 2019-12-29 13:30 | SNU/HH DC ---
DISCHARGE ORDERS DISCHARGE INFORMATION: FINAL DIAGNOSIS Problems Medical Problems: (1) Acute pulmonary embolism Status: Acute CONDITION ON DISCHARGE: Stable CODE STATUS: Code Status: Full NURSING HOME: SNF STAY <30 DAYS: Yes HOSPICE: HOSPICE: No HOSPICE EVAL & TREAT: No LTAC: ADMIT TO LTAC: No POST DISCHARGE ORDERS: ACTIVITY ORDERS: Resume previous activity WEIGHT BEARING STATUS: Full weight bearing DIET AFTER DISCHARGE: Regular CHECKS AFTER DISCHARGE: CHECKS AFTER DISCHARGE: Check blood press - daily, Check your Temp as needed TREATMENT/EQUIPMENT ORDERS: ADAPTIVE EQUIPMENT NEEDED: Front wheeled walker RESPIRATORY EQUIPMENT NEEDED: Nebulizer Physical Therapy For: Evalulation/Treatment Occupational Therapy For: Evaluation/Treatment Speech Language Pathology For: Evaluation/Treatment DISCHARGE MEDICATIONS: Home Meds Active Scripts Amoxicillin/Potassium Clav (AUGMENTIN 500-125 TABLET) 1 Each Tablet, 1 TAB PO BID for UTI for 7 Days, #14 TAB 0 Refills Prov:ROSALVA TRAN MD 12/29/19 Lactobacillus Rhamnosus Gg (CULTURELLE) 1 Each Cap.sprink, 1 CAP PO BID for SUPPLEMENT for 30 Days, #60 CAP Prov:ROSALVA TRAN MD 12/29/19 Methyl Salicylate/Menthol (BENGAY GREASELESS CREAM) 57 Gm Cream..g., 1 HUSSAIN TP PRN QID PRN for MUSCLE PAIN for 10 Days, #60 EACH Prov:ROSALVA TRAN MD 12/29/19 Reported Medications Trazodone Hcl (TRAZODONE HCL) 50 Mg Tablet, 0.5 TAB PO QHS for insomnia, #30 TAB 1 Refill 12/27/19 Tramadol Hcl (TRAMADOL HCL) 50 Mg Tablet, 50 MG PO Q6HRS PRN for PAIN, TAB 12/27/19 Sertraline Hcl (SERTRALINE HCL) 50 Mg Tablet, 50 MG PO DAILY for ANTI- DEPRESSANT, TAB 0 Refills 12/27/19 Ropinirole Hcl (REQUIP) 0.25 Mg Tablet, 1 MG PO BID for Restless leg syndrome, TAB 12/27/19 Ropinirole Hcl (ROPINIROLE HCL) 1 Mg Tablet, 1 MG PO PRN DAILY PRN for SEE COMMENTS, TAB 12/27/19 Levothyroxine Sodium (SYNTHROID) 75 Mcg Tablet, 1 TAB PO DAILY for hypothyroidism, #30 TAB 5 Refills 12/27/19 Potassium Chloride (Klor-Con 10) 10 Meq Tablet.er, 2 TAB PO DAILY for supplement for 30 Days, #60 TAB 0 Refills 12/27/19 Oxycodone HCl/Acetaminophen (Percocet 5-325 mg Tablet) 1 Each Tablet, 1 TAB PO PRN Q4HRS PRN for PAIN MDD 2 Tablet(s) for 5 Days, #10 TAB 0 Refills 12/27/19 Furosemide (FUROSEMIDE) 20 Mg Tablet, 3 TAB PO DAILY for edema, #90 TAB 1 Refill 20 Ferrous Sulfate (FERROUS SULFATE) 325 Mg Tablet, 1 TAB PO DAILY for supplement, #30 TAB 3 Refills 12/27/19 Lidocaine HCl (Aspercreme) 76.5 Gm Cream..g., 1 HUSSAIN TP PRN Q6HRS PRN for PAIN for 30 Days, GM 0 Refills 12/27/19 Lidocaine (Lidocaine PATCH ) 1 Each Adh..patch, 1 EACH TP DAILY for FOR LOCAL PAIN, PATCH REMOVE AFTER 12 HOURS 12/27/19 Simvastatin (SIMVASTATIN) 20 Mg Tablet, 1 TAB PO QHS for hyperlipidemia, #30 TAB 5 Refills 08/05/19 Sennosides/Docusate Sodium (SENOKOT-S TABLET) 1 Each Tablet, 1 TAB PO BID for co nstipation for 30 Days, #60 TAB 0 Refills 08/05/19 Famotidine (PEPCID) 20 Mg Tablet, 20 MG PO BID for indigestion, TAB 20 Guaifenesin (MUCINEX) 600 Mg Tablet.er, 1 TAB PO DAILY for cough for 10 Days, #10 TAB 0 Refills 08/05/19 Polyethylene Glycol 3350 (MIRALAX) 17 Gm Powd.pack, 1 PACKET PO PRN DAILY PRN for CONSTIPATION for 2 Days, PACKET 0 Refills dissolve in water 08/05/19 Melatonin (MELATONIN) 3 Mg Tablet, 2 TAB PO QHS for supplement, #30 TAB 2 Refills 08/05/19 Levetiracetam (KEPPRA) 500 Mg Tablet, 3 TAB PO HS for epilepsy for 30 Days, #90 TAB 0 Refills 20 Levetiracetam (KEPPRA) 500 Mg Tablet, 2 TAB PO DAILY for epilepsy for 30 Days, #60 TAB 0 Refills 20 Diclofenac Sodium (VOLTAREN) 100 Gm Gel..gram., 1 GM TP QID for pain for 30 Days, #1 EACH 0 Refills apply to affected area(s) 08/05/19 Cyanocobalamin (Vitamin B-12) (B-12) 1,000 Mcg Tablet.er, 1 TAB PO DAILY for supplement for 30 Days, #30 TAB 0 Refills 08/05/19 Cetirizine Hcl (CETIRIZINE HCL) 10 Mg Tablet, 1 TAB PO DAILY for rhinitis/allergies, #30 TAB 5 Refills 08/05/19 Multivitamin (MULTI VITAMIN DAILY) 1 Each Tablet, 1 TAB PO DAILY for supplement for 30 Days, #30 TAB 0 Refills 08/05/19 Calcium Carbonate (CALCIUM CARBONATE) 500 Mg Tablet, 1 TAB PO PRN Q12HR PRN for INDIGESTION for 30 Days, TAB 0 Refills 08/05/19 Aspirin/Dipyridamole (AGGRENOX 25 MG-200 MG CAPSULE) 1 Each Cpmp.12hr, 1 CAP PO BID for right artificial knee joint, #60 CAP 5 Refills 08/05/19 Acetaminophen (ACETAMINOPHEN) 325 Mg Tablet, 2 TAB PO Q4HRS PRN for pain or fever for 30 Days, #30 TAB 0 Refills 08/05/19 Discontinued Reported Medications Oxycodone HCl/Acetaminophen (Percocet 5-325 mg Tablet) 1 Each Tablet, 1 TAB PO PRN DAILY PRN for PAIN MDD 2 Tablet(s) for 30 Days, #60 TAB 0 Refills 12/27/19 Diphenhydramine Hcl (BENADRYL ALLERGY) 25 Mg Tablet, 25 MG PO PRN Q4HRS PRN for ALLERGIES, TAB 12/27/19 Levothyroxine Sodium (SYNTHROID) 100 Mcg Tablet, 1 TAB PO DAILY for hypothyroidism, #30 TAB 5 Refills 08/05/19 ROSALVA TRAN MD Dec 29, 2019 13:30
--- NOTE | 2019-12-29 14:32 | NUR ---
SS following up with discharge planning. Discharge orders received for return to [facility], ; fax [phone]. SS phoned and faxed discharge orders to [facility]. SS left voicemail for Jerald NORMAN, at [facility]. SS spoke with pt's RN at facility and notified of discharge. Pt's RN reported that she checked with transportation at there facility and they can transport pt between 1530 and 1600. Pt and pt's RN notified.
--- NOTE | 2019-12-29 15:54 | NUR ---
Discharge Note: [facility] Discharge instructions and discharge home medications reviewed with Other facility Shaunna ODONNELL and a copy given. All questions have been answered and understanding verbalized. The following instructions and handouts were given: CP, PE, follow up for stress test and appointment with Dr. Aguilar Discontinued lines and drains: Peripheral IV intact. Patient discharged to [facility] with wheelchair van personnel via Wheelchair
[2019-12-29] MEDS ORDERED: LACTOBACILLUS RHAMNOSUS GG 1 CAPSULE. PO SCH (21:00)
== END 2019-12-29 15:55 | DRG 176 ==
LOC: ER 07:00 → 2 NORTH 08:45 → 2 SOUTH 17:09 → 1 WEST ICU 12-28 18:00
PROVIDERS: ADMIT Internal Medicine; ATTEND Internal Medicine
DX: I26.99 Other pulmonary embolism without acute cor pulmonale (principal); N39.0 Urinary tract infection, site not specified; D50.9 Iron deficiency anemia, unspecified; E03.9 Hypothyroidism, unspecified; E04.1 Nontoxic single thyroid nodule; E66.9 Obesity, unspecified; E78.00 Pure hypercholesterolemia, unspecified; E78.5 Hyperlipidemia, unspecified; F17.210 Nicotine dependence, cigarettes, uncomplicated; G25.81 Restless legs syndrome; G40.909 Epilepsy, unspecified, not intractable, without status epilepticus; I10 Essential (primary) hypertension; J43.9 Emphysema, unspecified; Z96.651 Presence of right artificial knee joint; F32.9 Major depressive disorder, single episode, unspecified; F41.9 Anxiety disorder, unspecified; G47.33 Obstructive sleep apnea (adult) (pediatric); K21.9 Gastro-esophageal reflux disease without esophagitis; Z20.828 Contact with and (suspected) exposure to other viral communicable diseases; M19.90 Unspecified osteoarthritis, unspecified site; Z82.49 Family history of ischemic heart disease and other diseases of the circulatory system; Z83.3 Family history of diabetes mellitus; Z86.718 Personal history of other venous thrombosis and embolism; Z90.710 Acquired absence of both cervix and uterus; Z99.3 Dependence on wheelchair; Z68.36 Body mass index [BMI] 36.0-36.9, adult
CPT/HCPCS: 36415; 71275; 80053; 80061; 81001; 82553; 83690; 83735; 83880; 84443; 84484; 85025; 85610; 85730; 87086; 93005; 93970; 96361; 96374; 99291; J0696; J1650; J7030; Q9967; G0378; U0003-CS

== ENCOUNTER 2020-02-17 10:46 | Emergency (ER) | payer MEDICARE, MEDICAID ==
[~2020-02-17] VITALS: Ht 170.2 cm; Wt 95.0 kg
[~2020-02-17 10:46] MED LIST changes: +AMOX1TAB58 PO; +DIPH25TA64 PO; +FERR325T14 PO; +FURO20TA3 PO; +LACT1CAP19 PO; +LEVO75TA90 PO; +LIDO700A21 TP; +LIDO76.5 TP; +METH57CR17 TP; +POTA10TA6 PO; +ROPI0.25 PO; +ROPI1TAB4 PO; +SERT50TA8 PO; +TRAZ-118 PO
--- NOTE | 2020-02-17 12:05 | RAD ---
PROCEDURE: FOOT RIGHT 3V CLINICAL INDICATION / HISTORY: Reason: right foot injury, fall 2 days ago / Spl. Instructions: / History: . TECHNIQUE: AP, lateral and oblique views of the right foot. COMPARISON: None FINDINGS: No fracture or dislocation is identified. The bone density is mildly demineralized. The joint space widths are maintained, and there are no erosions to suggest an inflammatory arthropathy. No soft tissue abnormality is seen. IMPRESSION: No acute osseous abnormality. Electronically signed by: Raymundo Melendez MD (02/17/2020 12:01 PM) [id number]
--- NOTE | 2020-02-17 13:16 | RAD ---
CT PELVIS WO CONTRAST dated 02/17/2020 12:22 PM Indication:Pain, injuryReason: left hip pain after fall / Spl. Instructions: / History: . Comparison: No comparison is available. Technique: Contiguous axial imaging the pelvis performed without the administration of intravenous contrast. One or more of the following individualized dose reduction techniques were utilized for this examination: 1. Automated exposure control 2. Adjustment of the mA and/or kV according to patient size 3. Use of iterative reconstruction technique Findings: Bony alignment is anatomic. No displaced fracture. Pelvic ring is intact. There is moderate to severe degenerative change of the left hip joint with meit-iy-fryl abutment and subchondral cystic change of the acetabulum. Prominent marginal osteophytes. No significant joint effusion. Possible small loose body at the anterior joint space. Mild degenerative change at the right hip joint with mild degenerative change of the bilateral SI joint, left greater than right. Spondylotic changes of the lower lumbar spine. Limited images of pelvis show nondistended urinary bladder. Uterus is surgically absent. No free pelvic fluid or pelvic lymphadenopathy. Distal GI tract unremarkable. IMPRESSION: 1. No acute bony or soft tissue abnormality. No CT evidence of fracture. 2. Degenerative changes as described above. There is moderate to severe degenerative change at the left hip joint. Electronically signed by: Elpidio Mandujano MD (02/17/2020 1:13 PM) KEENA
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
[2020-02-17 14:21] VITALS: BP 151/72
== END 2020-02-17 16:24 | disposition home or self-care (01) ==
LOC: ER 10:46
DX: S90.31XA Contusion of right foot, initial encounter (principal); M25.552 Pain in left hip; G89.29 Other chronic pain; E78.00 Pure hypercholesterolemia, unspecified; I10 Essential (primary) hypertension; G40.909 Epilepsy, unspecified, not intractable, without status epilepticus; G25.81 Restless legs syndrome; Z90.710 Acquired absence of both cervix and uterus; Z87.891 Personal history of nicotine dependence; W18.39XA Other fall on same level, initial encounter; Y93.89 Activity, other specified; Y92.89 Other specified places as the place of occurrence of the external cause; Y99.8 Other external cause status
CPT/HCPCS: 72192; 73630; 99285-25

== ENCOUNTER → 2020-09-13 | Outpatient (CLI) | payer MEDICARE, MEDICAID ==
[~2020-09-13] MED LIST changes: +SERT-267 PO; -SERT50TA8 PO
--- NOTE | 2020-09-14 16:13 | RAD ---
DATE: 09/13/2020 11:04 AM EXAM: DIGITAL SCREEN BILAT W/CAD HISTORY: Screening COMPARISON: 05/16/2019 Bilateral full field craniocaudal and mediolateral oblique images were obtained using digital technique. This study was interpreted with the benefit of Computerized Aided Detection (CAD). FINDINGS: Breast Density: FATTY The Breast Parenchyma is primarily fatty replaced. Breast parenchyma level density A. No suspicious masses, microcalcifications or architectural distortion is present to suggest malignancy in either breast. The visualized axillae are unremarkable. IMPRESSION: No mammographic evidence of malignancy. BI-RADS CATEGORY: 1 NEGATIVE RECOMMENDED FOLLOW-UP: 12M 12 MONTH FOLLOW-UP Annual screening mammography is recommended, unless clinically indicated sooner based on symptoms or change in physical exam. PQRS compliance statement: Patient information was entered into a reminder system with a target due date for the next mammogram. Mammography is a sensitive method for finding small breast cancers, but it does not detect them all and is not a substitute for careful clinical examination. A negative mammogram does not negate a clinically suspicious finding and should not result in delay in biopsying a clinically suspicious abnormality. "Our facility is accredited by the [employer] Mammography Program."
== END ==
LOC: MAMMO 13:07
PROVIDERS: ATTEND Internal Medicine
DX: Z12.31 Encounter for screening mammogram for malignant neoplasm of breast (principal)
CPT/HCPCS: 77067

== ENCOUNTER → 2021-01-24 | Outpatient (CLI) | payer MEDICARE, MEDICAID ==
[2020-10-22 14:49] VITALS: BP 155/86
[~2021-01-24] MED LIST changes: +CEPH500C PO; +SULF1TAB24 PO
--- NOTE | 2021-01-24 09:01 | KCIC ---
Right breast ultrasound: Reason for examination: Skin lesion. Evaluate for associated abscess. Ultrasound examination was performed in the area of clinical concern at the 3:00 position 11 cm from the nipple. Within the skin, there does appear to be a small 5.2 mm hypoechoic lesion consistent with some focal inflammation/edema. No associated abscess is identified. IMPRESSION: 5.2 mm hypoechoic lesion in the skin at the 3:00 position 11 cm from the nipple with no associated ab scess evident. Recommend dermatology consultation. BI-RADS Category 2: Benign. "Our facility is accredited by the [employer] Mammography Program." This patient's information has been entered into a reminder system for the patient to be notified wit h the results of her examination and a target date for the next mammogram. Electronically signed by: Steffany Valera MD (01/24/2021 8:59 AM) [id number]
== END ==
LOC: KCIC US 07:57
PROVIDERS: ATTEND Internal Medicine
DX: N64.89 Other specified disorders of breast (principal)
CPT/HCPCS: 76641

== ENCOUNTER → 2021-09-18 | Outpatient (CLI) | payer MEDICARE, MEDICAID ==
[2020-10-22 14:49] VITALS: BP 155/86
[~2021-09-18] MED LIST changes: +POTA-112 PO; +POTA-121 PO; -POTA10TA6 PO; -POTA20TA4 PO; +TIZA-75 PO; -TIZA4TAB2 PO
--- NOTE | 2021-09-18 18:01 | RAD ---
Digital Mammogram Bilateral History: Routine screening Technique: 2-D digital CC and MLO views were obtained. CAD - computer aided detection was utilize d. Comparison: Mammograms from 05/25/2018, 05/16/2019, and 09/13/2020. Findings: Breast Tissue Density A: The breasts are almost entirely fatty density. There are no suspicious masses, malignant appearing calcifications, or areas of architectural distort ion. Impression: No evidence of malignancy. Assessment: BI-RADS Category 1: Negative. Recommendation: Routine screening mammograms. The patient will receive a letter with the results in the mail. Patient information will be entered i nto the mammography reminder system with a target recall date for the next mammogram. A reminder martina er will be generated. Electronically signed by: Jacquelin Hayes MD (09/18/2021 5:59 PM) [id number]
== END ==
LOC: MAMMO 12:54
PROVIDERS: ATTEND Internal Medicine
DX: Z12.31 Encounter for screening mammogram for malignant neoplasm of breast (principal)
CPT/HCPCS: 77067